=== PATIENT | female | born 1970 | race Caucasian/White ===

== ENCOUNTER 2017-03-21 12:32 | Emergency (ER) | payer MEDICARE ==
[2017-03-21] MEDS ORDERED: Albuterol/Ipratropium 3.0-0.5 MG/3 ML Neb Soln ONE (12:37)
[2017-03-21] MEDS ORDERED: Albuterol/Ipratropium 3.0-0.5 MG/3 ML Neb Soln NEB ONE ×2 (12:38→12:47)
[2017-03-21] MEDS ORDERED: Sodium Chloride 0.9% 1,000 ML IV ONE (12:47)
[2017-03-21] MEDS ORDERED: methylPREDNISolone Sodium Succinate 125 MG/2 ML SDV IVPUSH ONE (12:47)
--- NOTE | 2017-03-21 12:50 | EDM.PDOC ---
ED HISTORY OF PRESENT ILLNESS - General Chief Complaint: Respiratory Problem Stated Complaint: ASTHMA/HARD TO BREATH Time Seen by Provider: 03/21/17 12:48 Source of Information: Reports: Patient History Limitations: Reports: No limitations - History of Present Illness INITIAL COMMENTS - FREE TEXT/NARRATIVE: History of present illness: [47-year-old female comes in complaining of acute exacerbation of her chronic asthma. Patient indicates she did do her nebulizer home but yet she still cannot catch her breath she comes in seeking help to be able to "catch her breath" the] Review of systems: As per history of present illness and below otherwise all systems reviewed and negative. Past medical history: As per history of present illness and as reviewed below otherwise noncontributory. Surgical history: As per history of present illness and as reviewed below otherwise noncontributory. Social history: No reported history of drug or alcohol abuse. Family history: As per history of present illness and as reviewed below otherwise noncontributory. Physical exam: HEENT: Atraumatic, normocephalic, pupils reactive, negative for conjunctival pallor or scleral icterus, mucous membranes moist, throat clear, neck supple, nontender, trachea midline. Lungs: Poor air movement noted throughout specifically in the apices on deep inspiration noted to hear inspiratory and expiratory wheezes not much improved by cough, chest nontender. Heart: S1S2, regular, negative for clicks, rubs, or JVD. Abdomen: Soft, nondistended, nontender. Negative for masses or hepatosplenomegaly. Negative for costovertebral tenderness. Pelvis: Stable nontender. Genitourinary: Deferred. Rectal: Deferred. Extremities: Atraumatic, negative for cords or calf pain. Neurovascular unremarkable. Neuro: Awake, alert, oriented. Cranial nerves II through XII unremarkable. Cerebellum unremarkable. Motor and sensory unremarkable throughout. Exam nonfocal. Diagnostics: [Chest x-ray] Therapeutics: [Duo neb x2, IV fluids, Solu-Medrol IV] Impression: [Asthma exacerbation acute on chronic] Plan: [Followup PCP to address allergic to] Definitive disposition and diagnosis as appropriate pending reevaluation and review of above. - Related Data Allergies/ADRs: Allergies Allergy/AdvReac Type Severity Reaction Status Date / Time aspirin Allergy Other Verified 06/26/16 12:58 ketorolac tromethamine Allergy Rash Verified 06/26/16 12:58 [From Toradol] latex Allergy Rash Verified 06/26/16 12:58 Sulfa (Sulfonamide Allergy Edema Verified 06/26/16 12:58 Antibiotics) trazodone Allergy Hives Verified 06/26/16 12:58 Home Meds: Home Meds Escitalopram Oxalate [Lexapro] 20 mg PO DAILY 02/27/16 [History] Gabapentin [Neurontin] 600 mg PO TID 02/27/16 [History] Levothyroxine [Synthroid] 50 mg PO DAILY 02/27/16 [History] Omeprazole [Prilosec] 40 mg PO DAILY 02/27/16 [History] QUEtiapine [SEROquel] 100 mg PO DAILY 02/27/16 [History] lamoTRIgine [Lamictal] 200 mg PO DAILY 02/27/16 [History] Past Medical History Cardiovascular History: Reports: High cholesterol, Hypertension Respiratory History: Reports: Asthma Musculoskeletal History: Reports: Fibromyalgia Neurological History: Reports: Migraines Other Neuro History: wilbrans disease Psychiatric History: Reports: Addiction, Anxiety, Depression Hematologic History: Reports: Other (see below) Other Hematologic History: von wilabrauns disease - Past Surgical History HEENT Surgical History: Reports: Adenoidectomy, Tonsillectomy Social & Family History - Family History Family Medical History: Noncontributory - Tobacco Use Smoking Status *Q: Current Every Day Smoker Years of Tobacco use: 20 Packs/Tins Daily: 1 Used Tobacco, but Quit: No - Caffeine Use Caffeine Use: Reports: None - Recreational Drug Use Recreational Drug Use: No ED ROS GENERAL - Review of Systems Review Of Systems: See Below (See history of present illness) ED EXAM, GENERAL - Physical Exam Exam: See Below (The history of present illness) Course - Vital Signs Last Recorded V/S: Last Vital Signs Temp 36.3 C 03/21/17 12:39 Pulse 99 03/21/17 12:39 Resp 20 03/21/17 12:39 BP 163/106 H 03/21/17 12:39 Pulse Ox 96 03/21/17 12:49 - Orders/Labs/Meds Orders: Active Orders 24 hr Category Date Time Status RT Aerosol Therapy [RC] ASDIRECTED Care 03/21/17 12:47 Active CXR [Chest 2V] [CR] Stat Exams 03/21/17 12:50 Taken Meds: Medications Discontinued Medications Generic Name Dose Route Start Last Admin Trade Name Cristal PRN Reason Stop Dose Admin Albuterol/Ipratropium 3 ml 03/21/17 12:38 03/21/17 12:44 Duoneb 3.0-0.5 Mg/3 Ml NEB 03/21/17 12:39 3 ml ONETIME ONE Administration Albuterol/Ipratropium Confirm 03/21/17 12:37 03/21/17 12:44 Duoneb 3.0-0.5 Mg/3 Ml Administered 03/21/17 12:38 3 ml Dose Administration 3 ml .ROUTE .STK-MED ONE Albuterol/Ipratropium 3 ml 03/21/17 12:47 03/21/17 12:48 Duoneb 3.0-0.5 Mg/3 Ml NEB 03/21/17 12:48 3 ml ONETIME ONE Administration Sodium Chloride 1,000 mls @ 999 mls/hr 03/21/17 12:47 03/21/17 14:24 Normal Saline IV 03/21/17 13:47 999 mls/hr STAT ONE Administration Methylprednisolone Sodium Succinate 125 mg 03/21/17 12:47 03/21/17 14:20 Solu-Medrol IVPUSH 03/21/17 12:48 125 mg ONETIME ONE Administration Departure - Departure Time of Disposition: 15:01 Disposition: Home, Self-Care 01 Condition: good Clinical Impression: Acute asthma Forms: ED Department Discharge Additional Instructions: The following information is given to patients seen in the emergency department who are being discharged to home. This information is to outline your options for follow-up care. We provide all patients seen in our emergency department with a follow-up referral. The need for follow-up, as well as the timing and circumstances, are variable depending upon the specifics of your emergency department visit. If you don't have a primary care physician on staff, we will provide you with a referral. We always advise you to contact your personal physician following an emergency department visit to inform them of the circumstance of the visit and for follow-up with them and/or the need for any referrals to a consulting specialist. The emergency department will also refer you to a specialist when appropriate. This referral assures that you have the opportunity for follow-up care with a specialist. All of these measure are taken in an effort to provide you with optimal care, which includes your follow-up. Under all circumstances we always encourage you to contact your private physician who remains a resource for coordinating your care. When calling for follow-up care, please make the office aware that this follow-up is from your recent emergency room visit. If for any reason you are refused follow-up, please contact the [facility] Emergency Department at and asked to speak to the emergency department charge nurse. Followup with PCP as discussed in regards to your asthma with frequent exacerbations As discussed would probably benefit you to have allergy testing and/or evaluation after Turned ED as needed discuss - My Orders Last 24 Hours: My Active Orders 03/21/17 12:47 RT Aerosol Therapy [RC] ASDIRECTED 03/21/17 12:50 CXR [Chest 2V] [CR] Stat - Assessment/Plan Last 24 Hours: My Active Orders 03/21/17 12:47 RT Aerosol Therapy [RC] ASDIRECTED 03/21/17 12:50 CXR [Chest 2V] [CR] Stat
--- NOTE | 2017-03-21 15:01 | CR ---
EXAM DATE: 03/21/17 PATIENT'S AGE: 47 Patient: OSCAR HUA Facility: [place], [place] Site . Site : 1970 Study: XRay Chest [id number]/24/2017 1:41:47 PM Ordering Physician: Doctor Jha Final Report: INDICATION: Shortness of Breath. CHEST, PA AND LATERAL Upright PA and lateral radiographs of the chest were performed. Comparison: 02/27/2016. The lungs appear clear and there are no pleural effusions. Heart size and pulmonary vasculature appear normal. Visualized bones show no significant findings. IMPRESSION: No acute intrathoracic abnormality identified. BILL BOONE MD [employer] Dictated by: Germain Boone MD @ 03/21/2017 14:19:12 (Electronic Signature) Report Signed by Proxy and Original Signed Document filed in the Medical Record. [facility]
[2017-03-21 15:20] VITALS: BP 177/104
== END 2017-03-21 15:20 | disposition home or self-care (01) ==
LOC: MW.ED 12:32
DX: J45.909 Unspecified asthma, uncomplicated (principal); E78.00 Pure hypercholesterolemia, unspecified; I10 Essential (primary) hypertension; F41.8 Other specified anxiety disorders; D68.0 Von Willebrand disease; F17.200 Nicotine dependence, unspecified, uncomplicated; Z91.040 Latex allergy status; Z88.8 Allergy status to other drugs, medicaments and biological substances; Z79.899 Other long term (current) drug therapy
CPT/HCPCS: 71020; 94640; 94664; 96361; 96374; 99285; J2930; J7040; 99284

== ENCOUNTER 2017-10-10 00:42 | Observation (INO) | payer MEDICARE ==
[2017-10-10] MEDS ORDERED: Albuterol/Ipratropium 3.0-0.5 MG/3 ML Neb Soln NEB ONE (01:18)
--- NOTE | 2017-10-10 01:18 | EDM.PDOC ---
ED HPI GENERAL MEDICAL PROBLEM - General Chief Complaint: Chest Pain Stated Complaint: AMBULANCE Time Seen by Provider: 10/10/17 01:05 Source of Information: Reports: Patient - History of Present Illness INITIAL COMMENTS - FREE TEXT/NARRATIVE: she presented with onset this evening of central chest pressure. she has asthma and has smoked for thirty years. 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 Chest Pain Score (Numeric/FACES): 8 - Related Data Allergies Allergy/AdvReac Type Severity Reaction Status Date / Time aspirin Allergy Unknown Other Verified 10/10/17 01:29 ketorolac tromethamine Allergy Rash Verified 10/10/17 01:29 [From Toradol] latex Allergy Rash Verified 10/10/17 01:29 NSAIDS (Non-Steroidal Allergy Other Verified 10/10/17 01:29 Anti-Inflamma Sulfa (Sulfonamide Allergy Edema Verified 10/10/17 01:29 Antibiotics) trazodone Allergy Hives Verified 10/10/17 01:29 Nsaid Allergy Other Uncoded 10/10/17 01:29 Home Meds: Home Meds Escitalopram Oxalate [Lexapro] 20 mg PO DAILY 02/27/16 [History] Gabapentin [Neurontin] 1,200 mg PO TID 02/27/16 [History] Levothyroxine [Synthroid] 50 mg PO DAILY 02/27/16 [History] Omeprazole [Prilosec] 40 mg PO DAILY 02/27/16 [History] QUEtiapine [SEROquel] 100 mg PO DAILY PRN 02/27/16 [History] lamoTRIgine [Lamictal] 100 mg PO BID 02/27/16 [History] Amitriptyline [Elavil] 25 mg PO DAILY 10/10/17 [History] cloNIDine [Catapres] 0.1 mg PO DAILY 10/10/17 [History] cloNIDine [Catapres] 0.2 mg PO BEDTIME 10/10/17 [History] Past Medical History Cardiovascular History: Reports: High Cholesterol, Hypertension Respiratory History: Reports: Asthma Musculoskeletal History: Reports: Fibromyalgia Neurological History: Reports: Migraines Other Neuro History: wilbrans disease Psychiatric History: Reports: Addiction, Anxiety, Depression Hematologic History: Reports: Other (See Below) Other Hematologic History: von wilabrauns disease - Past Surgical History HEENT Surgical History: Reports: Adenoidectomy, Tonsillectomy Female Surgical History: Reports: Hysterectomy (for endometriosis) Social & Family History - Family History Family Medical History: Noncontributory - Tobacco Use Smoking Status *Q: Current Every Day Smoker Years of Tobacco use: 20 Packs/Tins Daily: 1 Used Tobacco, but Quit: No - Caffeine Use Caffeine Use: Reports: None - Recreational Drug Use Recreational Drug Use: No ED ROS GENERAL - Review of Systems Review Of Systems: See Below Constitutional: Denies: Fever, Chills ED EXAM, GENERAL - Physical Exam Exam: See Below Free Text/Narrative:: alert normal mentation lungs : coarse diffuse rhonchi heart rrr without m no ankle edema normal mentation no facial droop EKG: NSR Course - Vital Signs Last Recorded V/S: Last Vital Signs Temp 97.2 F 10/10/17 01:00 Pulse 89 10/10/17 01:00 Resp 18 10/10/17 01:00 BP 128/92 H 10/10/17 01:00 Pulse Ox 95 10/10/17 01:00 - Orders/Labs/Meds Orders: Active Orders 24 hr Category Date Time Status EKG 12 Lead [EKG Documentation Completion] [RC] STAT Care 10/10/17 00:58 Active RT Aerosol Therapy [RC] ASDIRECTED Care 10/10/17 01:18 Active Chest 1V Frontal [CR] Stat Exams 10/10/17 01:15 Taken Labs: Laboratory Tests 10/10/17 10/10/17 Range/Units 01:10 01:10 WBC 9.02 (4.0-11.0) K/uL RBC 3.94 L (4.30-5.90) M/uL Hgb 12.9 (12.0-16.0) g/dL Hct 38.0 (36.0-46.0) % MCV 96.4 (80.0-98.0) fL MCH 32.7 H (27.0-32.0) pg MCHC 33.9 (31.0-37.0) g/dL RDW Std Deviation 39.6 (28.0-62.0) fl RDW Coeff of Augusto 12 (11.0-15.0) % Plt Count 300 (150-400) K/uL MPV 8.80 (7.40-12.00) fL Neut % (Auto) 44.4 L (48.0-80.0) % Lymph % (Auto) 43.6 H (16.0-40.0) % [place] % (Auto) 6.8 (0.0-15.0) % Eos % (Auto) 5.0 (0.0-7.0) % Baso % (Auto) 0.2 (0.0-1.5) % Neut # (Auto) 4.0 (1.4-5.7) K/uL Lymph # (Auto) 3.9 H (0.6-2.4) K/uL [place] # (Auto) 0.6 (0.0-0.8) K/uL Eos # (Auto) 0.5 (0.0-0.7) K/uL Baso # (Auto) 0.0 (0.0-0.1) K/uL Sodium 137 (136-146) mmol/L Potassium 3.8 (3.5-5.1) mmol/L Chloride 108 (98-110) mmol/L Carbon Dioxide 20 L (21-31) mmol/L BUN 9 (6.0-23.0) mg/dL Creatinine 0.8 (0.6-1.5) mg/dL Est Cr Clr Drug Dosing 73.46 mL/min Estimated GFR (MDRD) > 60.0 ml/min Glucose 156 H (60-110) mg/dL Calcium 8.9 (8.8-10.8) mg/dL Total Bilirubin 0.3 (0.1-1.5) mg/dL AST 15 (5-40) IU/L ALT 16 (8-54) IU/L Alkaline Phosphatase 71 (40-150) Troponin I < 0.10 (0.0-0.29) NG/ML Total Protein 6.8 (6.0-8.0) g/dL Albumin 3.9 (3.5-5.0) g/dL Globulin 2.9 (2.0-3.5) g/dL Albumin/Globulin Ratio 1.3 (1.3-2.8) Triglycerides 152 (10-190) mg/dL Cholesterol 239 (131-240) mg/dL LDL Cholesterol, Calc 159 (60-180) mg/dL VLDL Cholesterol 30 (5-55) mg/dL HDL Cholesterol 50 (40-80) mg/dL Cholesterol/HDL Ratio 4.8 (3.3-6.0) Meds: Medications Discontinued Medications Generic Name Dose Route Start Last Admin Trade Name Cristal PRN Reason Stop Dose Admin Albuterol/Ipratropium 3 ml 10/10/17 01:18 10/10/17 01:32 Duoneb 3.0-0.5 Mg/3 Ml NEB 10/10/17 01:19 3 ml ONETIME ONE Administration Morphine Sulfate 5 mg 10/10/17 01:59 10/10/17 02:09 Morphine IVPUSH 10/10/17 02:00 5 mg ONETIME ONE Administration Nitroglycerin 1 gm 10/10/17 01:57 10/10/17 02:09 Nitro-Bid 2% TOP 10/10/17 01:58 1 gm ONETIME ONE Administration Departure - Departure Time of Disposition: 02:43 Disposition: Refer to Observation Condition: Fair Clinical Impression: Atypical chest pain Referrals: PCP,None [Primary Care Provider] - Forms: ED Department Discharge - My Orders Last 24 Hours: My Active Orders 10/10/17 00:58 EKG 12 Lead [EKG Documentation Completion] [RC] STAT 10/10/17 01:15 Chest 1V Frontal [CR] Stat 10/10/17 01:18 RT Aerosol Therapy [RC] ASDIRECTED - Assessment/Plan Last 24 Hours: My Active Orders 10/10/17 00:58 EKG 12 Lead [EKG Documentation Completion] [RC] STAT 10/10/17 01:15 Chest 1V Frontal [CR] Stat 10/10/17 01:18 RT Aerosol Therapy [RC] ASDIRECTED
[2017-10-10] MEDS ORDERED: Nitroglycerin 2% Oint 1 GM UD Packet TOP ONE (01:57)
[2017-10-10 01:58] LABS: CHLORIDE,CL 108 mmol/L (98-110); SODIUM,NA 137 mmol/L (136-146)
[2017-10-10] MEDS ORDERED: Morphine 10 MG/ML Syringe IVPUSH ONE (01:59)
[2017-10-10] MEDS ORDERED: Sodium Chloride 0.9% 10 ML Syringe FLUSH PRN (02:44)
[2017-10-10] MEDS ORDERED: Morphine 10 MG/ML Syringe IVPUSH PRN (02:44)
[2017-10-10] MEDS ORDERED: Sodium Chloride 0.9% 2.5 ML Syringe FLUSH PRN (02:44)
[2017-10-10] MEDS ORDERED: Aspirin 81 MG Tab.Chew PO ONE (02:49)
--- NOTE | 2017-10-10 03:08 | PCM.HP ---
H&P History of Present Illness - General Date of Service: 10/10/17 Admit Problem/Dx: Admission Diagnosis/Problem Admission Diagnosis/Problem Chest pain - History of Present Illness Initial Comments - Free Text/Narative: She noted onset of central chest pressure this evening while sitting on the sofa smoking a cigarette. She has a history of asthma but this does not feel like asthma to her. Chest Pain Score (Numeric/FACES): 8 - Related Data Allergies/Adverse Reactions: Allergies Allergy/AdvReac Type Severity Reaction Status Date / Time aspirin Allergy Unknown Other Verified 10/10/17 01:29 ketorolac tromethamine Allergy Rash Verified 10/10/17 01:29 [From Toradol] latex Allergy Rash Verified 10/10/17 01:29 NSAIDS (Non-Steroidal Allergy Other Verified 10/10/17 01:29 Anti-Inflamma Sulfa (Sulfonamide Allergy Edema Verified 10/10/17 01:29 Antibiotics) trazodone Allergy Hives Verified 10/10/17 01:29 Nsaid Allergy Other Uncoded 10/10/17 01:29 Home Medications: Home Meds Escitalopram Oxalate [Lexapro] 20 mg PO DAILY 02/27/16 [History] Gabapentin [Neurontin] 1,200 mg PO TID 02/27/16 [History] Levothyroxine [Synthroid] 50 mg PO DAILY 02/27/16 [History] Omeprazole [Prilosec] 40 mg PO DAILY 02/27/16 [History] QUEtiapine [SEROquel] 100 mg PO DAILY PRN 02/27/16 [History] lamoTRIgine [Lamictal] 100 mg PO BID 02/27/16 [History] Amitriptyline [Elavil] 25 mg PO DAILY 10/10/17 [History] cloNIDine [Catapres] 0.1 mg PO DAILY 10/10/17 [History] cloNIDine [Catapres] 0.2 mg PO BEDTIME 10/10/17 [History] Past Medical History Cardiovascular History: Reports: High Cholesterol, Hypertension Respiratory History: Reports: Asthma Gastrointestinal History: Reports: Gastritis, GERD Musculoskeletal History: Reports: Fibromyalgia Neurological History: Reports: Migraines Other Neuro History: wilbrans disease Psychiatric History: Reports: Addiction, Anxiety, Depression Endocrine/Metabolic History: Reports: Hypothyroidism Hematologic History: Reports: Other (See Below) Other Hematologic History: von wilabrauns disease - Infectious Disease History Infectious Disease History: Reports: Chicken Pox - Past Surgical History HEENT Surgical History: Reports: Adenoidectomy, Tonsillectomy Female Surgical History: Reports: Hysterectomy (for endometriosis) Social & Family History - Family History Family Medical History: Noncontributory - Tobacco Use Smoking Status *Q: Current Every Day Smoker Years of Tobacco use: 20 Packs/Tins Daily: 1 Used Tobacco, but Quit: No - Caffeine Use Caffeine Use: Reports: None Caffeine Use Comment: daily - Recreational Drug Use Recreational Drug Use: No H&P Review of Systems - Review of Systems: Review Of Systems: See Below General: Denies: Fever, Chills Pulmonary: Reports: Other (no significant cough or wheezing noted.) Cardiovascular: Reports: Chest Pain Gastrointestinal: Denies: Abdominal Pain, Black Stool, Bloody Stool, Decreased Appetite, Hematemesis, Hematochezia, Melena, Vomiting Genitourinary: Denies: Dysuria, Frequency, Hematuria Skin: Denies: Cyanosis Psychiatric: Denies: Confusion Exam - Exam Exam: See Below - Vital Signs Vital Signs: Last Vital Signs Temp 97.2 F 10/10/17 01:00 Pulse 89 10/10/17 01:00 Resp 18 10/10/17 01:00 BP 128/92 H 10/10/17 01:00 Pulse Ox 95 10/10/17 01:00 Weight: 97.522 kg - Exam General: Alert, Oriented, Cooperative HEENT: EOMI, Mucosa Moist & [place] Neck: Supple, Trachea Midline Lungs: Other (initial lung exam revealed diffuse coarse rhonchi; repeat exam post duoneb reveals lungs CTA ) Cardiovascular: Regular Rate, Regular Rhythm GI/Abdominal Exam: Soft, Non-Tender, Other (anterior chest wall tenderness; pain reproducible by palpation) (Female) Exam: Deferred Rectal (Female) Exam: Deferred Extremities: No: Pedal Edema Neurological: Cranial Nerves Intact, Normal Speech Neuro Extensive - Motor, Sensory, Reflexes: No: Facial palsy (L), Facial Palsy ( R) - Patient Data Result Diagrams: 10/10/17 01:10 10/10/17 01:10 *Q Meaningful Use (ADM) - VTE *Q VTE Criteria *Q: - Stroke *Q Stroke Criteria *Q: - AMI *Q AMI Criteria *Q: - Problem List (1) Atypical chest pain SNOMED Code(s): 234522073 ICD Code: R07.89 - OTHER CHEST PAIN Status: Acute Current Visit: Yes (2) Bronchospasm SNOMED Code(s): 7904296 ICD Code: J98.01 - ACUTE BRONCHOSPASM Status: Acute Current Visit: Yes (3) Smoker SNOMED Code(s): 33958551 ICD Code: F17.200 - NICOTINE DEPENDENCE, UNSPECIFIED, UNCOMPLICATED Status : Acute Current Visit: Yes Problem List Initiated/Reviewed/Updated: Yes Orders Last 24hrs: Active Orders 24 hr Category Date Time Status Telemetry Monitoring [Cardiac Monitoring] [RC] . Care 10/10/17 02:48 Active DIRECTED LIPID PANEL [CHEM] AM Lab 10/10/17 05:11 Ordered TROPONIN I [CHEM] AM Lab 10/10/17 05:11 Ordered Amitriptyline [Elavil] Med 10/10/17 21:00 Active 25 mg PO BEDTIME Aspirin [Halfprin] Med 10/10/17 09:00 Active 81 mg PO DAILY Escitalopram Oxalate Med 10/10/17 09:00 Active 20 mg PO DAILY Gabapentin Med 10/10/17 06:00 Active 1,200 mg PO TID Levothyroxine [Synthroid] Med 10/10/17 09:00 Active 50,000 mcg PO DAILY Omeprazole [Prilosec] Med 10/10/17 09:00 Active 40 mg PO DAILY cloNIDine [Catapres] Med 10/10/17 09:00 Active 0.1 mg PO DAILY cloNIDine [Catapres] Med 10/10/17 21:00 Active 0.2 mg PO BEDTIME lamoTRIgine [Lamictal] Med 10/10/17 09:00 Active 100 mg PO BID Medication Orders Acetaminophen (Tylenol) 650 mg PO Q4H PRN PRN Reason: Pain (Mild 1-3)/fever Albuterol/Ipratropium (Duoneb 3.0-0.5 Mg/3 Ml) 3 ml NEB Q4HRRT [facility] Amitriptyline HCl (Elavil) 25 mg PO BEDTIME [facility] Aspirin (Halfprin) 81 mg PO DAILY [facility] Clonidine HCl (Catapres) 0.2 mg PO BEDTIME [facility] Clonidine HCl (Catapres) 0.1 mg PO DAILY [facility] Levothyroxine Sodium (Synthroid) 50,000 mcg PO DAILY [facility] Morphine Sulfate (Morphine) 5 mg IVPUSH Q2H PRN PRN Reason: Pain (severe 7-10) Stop: 10/11/17 02:45 Non-Formulary Medication (Escitalopram Oxalate) 20 mg PO DAILY [facility] Non-Formulary Medication (Gabapentin) 1,200 mg PO TID [facility] Non-Formulary Medication (Lamotrigine [Lamictal]) 100 mg PO BID [facility] Non-Formulary Medication (Omeprazole [Prilosec]) 40 mg PO DAILY [facility] Sodium Chloride (Saline Flush) 10 ml FLUSH ASDIRECTED PRN PRN Reason: Keep Vein Open Sodium Chloride (Saline Flush) 2.5 ml FLUSH ASDIRECTED PRN PRN Reason: Keep Vein Open Assessment/Plan Comment:: EKG: NSR ; no evidence of acute ischemia or injury CXR : normal atypical chest pain troponin in am duonebs lipid panel in am probable discharge within a few hours if second troponin is negative. Arvin Richardson MD
[2017-10-10] MEDS: Gabapentin 300 MG Cap PO SCH ×2 (05:21→13:38)
[2017-10-10] MEDS: Acetaminophen 325 MG Tab PO PRN ×2 (05:22→11:18)
[2017-10-10] MEDS: Albuterol/Ipratropium 3.0-0.5 MG/3 ML Neb Soln NEB SCH ×3 (07:00→13:39)
[2017-10-10] MEDS ORDERED: Omeprazole 20 MG Cap.CR PO SCH (07:30)
[2017-10-10] MEDS ORDERED: Levothyroxine 50 MCG Tab PO SCH (08:00)
[2017-10-10] MEDS ORDERED: Aspirin 81 MG Tab.EC PO SCH (09:00)
[2017-10-10] MEDS ORDERED: cloNIDine 0.1 MG Tab PO SCH ×2 (09:00→21:00)
[2017-10-10] MEDS ORDERED: Escitalopram 10 MG Tab PO SCH (09:00)
[2017-10-10] MEDS ORDERED: lamoTRIgine 100 MG Tab PO SCH (09:00)
[2017-10-10] MEDS ORDERED: Pantoprazole 40 MG in Sodium Chloride 0.9% 10 ML IVPUSH SCH (09:00)
[2017-10-10] MEDS ORDERED: Docusate Sodium 100 MG Cap PO SCH (09:00)
[2017-10-10 12:54] VITALS: BP 131/77
--- NOTE | 2017-10-10 13:37 | PCM.DCSUM1 ---
Discharge Summary - Hospital Course Brief History: This 47 year old female with pmh asthma, HTN, tobacco use, and fibromyalgia presented to the ED last evening with concerns of sudden sharp chest pain, almost burning like. She denied worsening SOB. It did slightly radiate to her back. SHe reports not feeling well recently and just having some malaise. In the ED EKG revealed no ST segment changes, CXR negative. She was given Duonebs with some improvement in pain. Initial troponin was negative. She was admitted for atypical chest pain, R/O ACS. - Discharge Data Discharge Date: 10/10/17 Discharge Disposition: Home, Self-Care 01 Condition: Good - Discharge Diagnosis/Problem(s) (1) Atypical chest pain SNOMED Code(s): 635622457 ICD Code: R07.89 - OTHER CHEST PAIN Status: Acute Current Visit: Yes (2) Bronchospasm SNOMED Code(s): 7053812 ICD Code: J98.01 - ACUTE BRONCHOSPASM Status: Acute Current Visit: Yes (3) Smoker SNOMED Code(s): 30420742 ICD Code: F17.200 - NICOTINE DEPENDENCE, UNSPECIFIED, UNCOMPLICATED Status : Chronic Current Visit: Yes (4) Hypertension SNOMED Code(s): 31790788 ICD Code: I10 - ESSENTIAL (PRIMARY) HYPERTENSION Status: Chronic Current Visit: No Qualifiers: Hypertension type: essential hypertension Qualified Code(s): I10 - Essential (primary) hypertension (5) Fibromyalgia SNOMED Code(s): 623636096 ICD Code: M79.7 - FIBROMYALGIA Status: Chronic Current Visit: Yes (6) History of asthma SNOMED Code(s): 213684358 ICD Code: Z87.09 - PERSONAL HISTORY OF OTHER DISEASES OF THE RESPIRATORY SYSTEM Status: Chronic Current Visit: Yes - Patient Instructions Diet: Heart Healthy Diet Activity: As Tolerated, No Strenuous Activities Showering/Bathing: May Shower Notify Provider of: Fever, Increased Pain, Swelling and Redness, Drainage, Nausea and/or Vomiting Other/Special Instructions: Encouraged smoking cessation - Discharge Plan Home Medications: Home Meds Escitalopram Oxalate [Lexapro] 20 mg PO DAILY 02/27/16 [History] Gabapentin [Neurontin] 1,200 mg PO TID 02/27/16 [History] Levothyroxine [Synthroid] 50 mcg PO DAILY 04/01/16 [History] Omeprazole [Prilosec] 40 mg PO DAILY 02/27/16 [History] QUEtiapine [SEROquel] 100 mg PO BEDTIME PRN 02/27/16 [History] lamoTRIgine [Lamictal] 100 mg PO BID 02/27/16 [History] Acetaminophen [Tylenol] 650 mg PO Q4H PRN 10/10/17 [History] Albuterol [Ventolin HFA] 2 inh IH BID 10/10/17 [History] Albuterol [Ventolin HFA] 2 inh IH Q4H PRN 10/10/17 [History] Amitriptyline [Elavil] 25 mg PO BEDTIME 10/10/17 [History] Estradiol [Climara] 0.05 mg TOP [place]@2100 10/10/17 [History] Ibuprofen [Motrin] 800 mg PO Q8H PRN 10/10/17 [History] Metoclopramide HCl [Reglan] 5 mg PO Q6HR PRN 10/10/17 [History] cloNIDine [Catapres] 0.1 mg PO DAILY 10/10/17 [History] cloNIDine [Catapres] 0.2 mg PO BEDTIME 10/10/17 [History] Patient Handouts: Nonspecific Chest Pain, [id number] Referrals: Fransico Blackmon MD [Physician] - 10/18/17 10:45 am (follow up in 1 week, arrange nuclear stress test with [place] cardiology per patient request) - Discharge Summary/Plan Comment DC Time >30 min.: No Discharge Summary/Plan Comment: Discharge Diagnoses: Atypical chest pain Hx asthma Tobacco abuse Fibromyalgia GERD HTN Araceli was admitted and monitored for atypical chest pain rule out ACS. No ST segment changes noted on telemetry, Troponins all negative. She reports pain is better, but is feeling her normal SOB with her asthma. She reports she regularly uses her ventolin and reports the last PFT she had was 3-5 years ago, which she said was good, but the foreign clerk again recommended her to stop smoking. She is ready for discharge today. I will set up a nuclear stress test, non exercise due to respiratory status, she requests this to be done through [facility]. I would also recommend outpatient PFTs to further evaluate respiratory status and need for more management. She is to continue all medications as previously ordered, HIGHLY encouraged to stop smoking and no strenuous activity until after stress test. She is to return to ED or clinic if concerns should arise. Follow up with PCP, in 1 week. - General Info Date of Service: 10/10/17 Admission Dx/Problem (Free Text: Admission Diagnosis/Problem Admission Diagnosis/Problem Chest pain Subjective Update: Reports feeling better this afternoon and is eager to be discharged home. I did recommend outpatient stress test as well as PFTs to further evaluate respiratory status. She denies chest pain now, some continued chest wall tenderness. Reports having a coughing spell a couple days ago. Functional Status: Reports: Pain Controlled, Tolerating Diet, Ambulating, Urinating - Review of Systems General: Reports: No Symptoms. Denies: Fever HEENT: Reports: No Symptoms. Denies: Headaches, Sore Throat, Rhinitis Pulmonary: Reports: Cough, Sputum (in the mornings only. ). Denies: Shortness of Breath, Hemoptysis, Wheezing Cardiovascular: Reports: No Symptoms. Denies: Chest Pain, Palpitations, Edema Gastrointestinal: Reports: No Symptoms. Denies: Abdominal Pain, Nausea, Vomiting Genitourinary: Reports: No Symptoms. Denies: Dysuria, Frequency, Burning Neurological: Reports: No Symptoms. Denies: Confusion Psychiatric: Reports: No Symptoms. Denies: Confusion - Patient Data Vitals - Most Recent: Last Vital Signs Temp 98.1 F 10/10/17 12:00 Pulse 73 10/10/17 12:00 Resp 18 10/10/17 12:00 BP 131/77 10/10/17 12:00 Pulse Ox 94 L 10/10/17 12:00 Weight - Most Recent: 97.522 kg Lab Results - Last 24 hrs: Laboratory Results - last 24 hr 10/10/17 10/10/17 10/10/17 Range/Units 05:15 08:09 11:20 Troponin I < 0.10 < 0.10 (0.0-0.29) NG/ML Triglycerides 147 (10-190) mg/dL Cholesterol 230 (131-240) mg/dL LDL Cholesterol, Calc 156 (60-180) mg/dL VLDL Cholesterol 29 (5-55) mg/dL HDL Cholesterol 45 (40-80) mg/dL Cholesterol/HDL Ratio 5.1 (3.3-6.0) Urine Color YELLOW Urine Appearance CLEAR Urine pH 5.5 (5.0-8.0) Ur Specific [place] 1.010 (1.001-1.035) Urine Protein NEGATIVE (NEGATIVE) mg/dL Urine Glucose (UA) NEGATIVE (NEGATIVE) mg/dL Urine Ketones NEGATIVE (NEGATIVE) mg/dL Urine Occult Blood NEGATIVE (NEGATIVE) Urine Nitrite NEGATIVE (NEGATIVE) Urine Bilirubin NEGATIVE (NEGATIVE) Urine Urobilinogen 0.2 (<2.0) EU/dL Ur Leukocyte Esterase NEGATIVE (NEGATIVE) Urine RBC 0-1 (0-2/HPF) Urine WBC 0-1 (0-5/HPF) Ur Epithelial Cells MODERATE (NONE-FEW) Urine Bacteria RARE (NEGATIVE) Med Orders - Current: Current Medications Acetaminophen (Tylenol) 650 mg PO Q4H PRN PRN Reason: Pain (Mild 1-3)/fever Last Admin: 10/10/17 11:18 Dose: 650 mg Albuterol/Ipratropium (Duoneb 3.0-0.5 Mg/3 Ml) 3 ml NEB Q4HRRT [facility] Last Admin: 10/10/17 12:37 Dose: Not Given Amitriptyline HCl (Elavil) 25 mg PO BEDTIME [facility] Aspirin (Halfprin) 81 mg PO DAILY [facility] Last Admin: 10/10/17 08:55 Dose: 81 mg Clonidine HCl (Catapres) 0.2 mg PO BEDTIME [facility] Clonidine HCl (Catapres) 0.1 mg PO DAILY [facility] Last Admin: 10/10/17 09:13 Dose: Not Given Docusate Sodium (Colace) 100 mg PO BID [facility] Last Admin: 10/10/17 08:54 Dose: 100 mg Escitalopram Oxalate (Lexapro) 20 mg PO DAILY [facility] Last Admin: 10/10/17 08:55 Dose: 20 mg Gabapentin (Neurontin) 1,200 mg PO TID [facility] Last Admin: 10/10/17 05:21 Dose: 1,200 mg Pantoprazole Sodium 40 mg/ (Sodium Chloride) 10 mls @ 300 mls/hr IVPUSH DAILY [facility] Last Admin: 10/10/17 08:56 Dose: 300 mls/hr Lamotrigine (Lamotrigine) 100 mg PO BID [facility] Last Admin: 10/10/17 08:54 Dose: 100 mg Levothyroxine Sodium (Synthroid) 50 mcg PO ACBREAKFAST [facility] Last Admin: 10/10/17 08:55 Dose: 50 mcg Morphine Sulfate (Morphine) 5 mg IVPUSH Q2H PRN PRN Reason: Pain (severe 7-10) Last Admin: 10/10/17 03:42 Dose: 5 mg Omeprazole (Omeprazole) 40 mg PO DAILY@0730 [facility] Last Admin: 10/10/17 06:57 Dose: 40 mg Sodium Chloride (Saline Flush) 10 ml FLUSH ASDIRECTED PRN PRN Reason: Keep Vein Open Sodium Chloride (Saline Flush) 2.5 ml FLUSH ASDIRECTED PRN PRN Reason: Keep Vein Open Discontinued Medications Albuterol/Ipratropium (Duoneb 3.0-0.5 Mg/3 Ml) 3 ml NEB ONETIME ONE Stop: 10/10/17 01:19 Last Admin: 10/10/17 01:32 Dose: 3 ml Aspirin (Aspirin) 324 mg PO ONETIME ONE Stop: 10/10/17 02:50 Last Admin: 10/10/17 02:56 Dose: 324 mg Morphine Sulfate (Morphine) 5 mg IVPUSH ONETIME ONE Stop: 10/10/17 02:00 Last Admin: 10/10/17 02:09 Dose: 5 mg Nitroglycerin (Nitro-Bid 2%) 1 gm TOP ONETIME ONE Stop: 10/10/17 01:58 Last Admin: 10/10/17 02:09 Dose: 1 gm - Exam General: Reports: Alert, Oriented, Cooperative Lungs: Reports: Clear to Auscultation, Normal Respiratory Effort, Other ( anterior chest wall tenderness) Cardiovascular: Reports: Regular Rate, Regular Rhythm, No Murmurs GI/Abdominal Exam: Normal Bowel Sounds, Soft, Non-Tender, No Organomegaly, No Distention, No Abnormal Bruit, No Mass, Pelvis Stable Extremities: Normal Inspection, Normal Range of Motion, Non-Tender, No Pedal Edema, Normal Capillary Refill Neurological: Reports: No New Focal Deficit Psy/Mental Status: Reports: Alert, Normal Affect, Normal Mood *Q Meaningful Use (DIS) - VTE *Q VTE Criteria *Q: - Stroke *Q Stroke Criteria *Q: - AMI *Q AMI Criteria *Q:
--- NOTE | 2017-10-10 16:32 | CR ---
EXAM DATE: 10/10/17 PATIENT'S AGE: 47 Patient: OSCAR HUA Facility: [place], [place] Site . Site : 1970 Study: XRay Chest [id number]/13/[id number] 1:37:26 AM Ordering Physician: Dylan Sheridan Final Report: INDICATION: Chest pain TECHNIQUE: Chest radiograph 4 views COMPARISON: 03/21/17 FINDINGS: Cardiovascular and mediastinum: The cardiac silhouette is normal in appearance and size. Mediastinum is within normal limits. Lungs and pleural spaces: Both lungs are unremarkable in appearance. No sign of pleural effusion. No pneumothorax is seen. Bones and soft tissues: No significant findings. IMPRESSION: 1. No acute cardiopulmonary disease seen. Dictated by: Jack Menendez MD @ 10/10/2017 01:40:25 (Electronic Signature) Report Signed by Proxy. [facility] CENTERArlyn
[2017-10-10] MEDS ORDERED: Amitriptyline 25 MG Tab PO SCH (21:00)
== END 2017-10-10 15:20 | disposition home or self-care (01) ==
LOC: MW.ED 00:42 → MW.MS 02:44
PROVIDERS: ADMIT Family Medicine; ATTEND Family Medicine
DX: R07.89 Other chest pain (principal); J98.01 Acute bronchospasm; I10 Essential (primary) hypertension; M79.7 Fibromyalgia; E78.00 Pure hypercholesterolemia, unspecified; K21.9 Gastro-esophageal reflux disease without esophagitis; F41.9 Anxiety disorder, unspecified; F32.9 Major depressive disorder, single episode, unspecified; E03.9 Hypothyroidism, unspecified; Z79.899 Other long term (current) drug therapy; Z87.09 Personal history of other diseases of the respiratory system; Z88.2 Allergy status to sulfonamides; Z88.8 Allergy status to other drugs, medicaments and biological substances; Z91.040 Latex allergy status; Z90.710 Acquired absence of both cervix and uterus; F17.210 Nicotine dependence, cigarettes, uncomplicated
CPT/HCPCS: 36415; 71010; 80053; 80061; 81001; 84484; 85025; 93005; 96374; 96375; 96376; 99285; A9270; C9113; G0378; J2270; 99282

== ENCOUNTER 2018-08-21 19:36 | Emergency (ER) | payer MEDICARE ==
--- NOTE | 2018-08-21 19:51 | EDM.PDOC ---
ED HPI GENERAL MEDICAL PROBLEM - General Chief Complaint: Chest Pain Stated Complaint: PT HAS CHEST PAINS Time Seen by Provider: 08/21/18 19:40 - History of Present Illness INITIAL COMMENTS - FREE TEXT/NARRATIVE: HISTORY AND PHYSICAL: History of present illness: Patient is a 48-year-old white female who has an extensive family history for coronary artery disease has been worked up and does use nitroglycerin when necessary she is unable to qualify the specifics of her nuclear medicine cardiac scan which was done relatively recently but has seen cardiology and presents today with chest pain that is been described as a tightness with equivocal associated shortness of breath she denies diaphoresis palpitations nausea or vomiting her EKG on arrival here as no acute changes cardiac workup was initiated and I discussed with patient the history and her presenting symptoms and without reservation patient is requesting transfer to [facility]. Review of systems: As per history of present illness and below otherwise all systems reviewed and negative. Past medical history: As per history of present illness and as reviewed below otherwise noncontributory. Surgical history: As per history of present illness and as reviewed below otherwise noncontributory. Social history: No reported history of drug or alcohol abuse. Family history: As per history of present illness and as reviewed below otherwise noncontributory. Physical exam: HEENT: Atraumatic, normocephalic, pupils reactive, negative for conjunctival pallor or scleral icterus, mucous membranes moist, throat clear, neck supple, nontender, trachea midline. Lungs: Clear to auscultation, breath sounds equal bilaterally, chest nontender. Heart: S1S2, regular, negative for clicks, rubs, or JVD. Abdomen: Soft, nondistended, nontender. Negative for masses or hepatosplenomegaly. Negative for costovertebral tenderness. Pelvis: Stable nontender. Genitourinary: Deferred. Rectal: Deferred. Extremities: Atraumatic, negative for cords or calf pain. Neurovascular unremarkable. Neuro: Awake, alert, oriented. Cranial nerves II through XII unremarkable. Cerebellum unremarkable. Motor and sensory unremarkable throughout. Exam nonfocal. Diagnostics: CBC CMP troponin PT/INR chest x-ray EKG Therapeutics: Patient states allergies to aspirin and declines she does agree to nitroglycerin paste 1 inch IV O2 and monitor Impression: #1 chest pain Definitive disposition and diagnosis as appropriate pending reevaluation and review of above. chest Pain Score (Numeric/FACES): 8 - Related Data Allergies Allergy/AdvReac Type Severity Reaction Status Date / Time aspirin Allergy Unknown Other Verified 08/21/18 19:45 ketorolac tromethamine Allergy Rash Verified 08/21/18 19:45 [From Toradol] latex Allergy Rash Verified 08/21/18 19:45 NSAIDS (Non-Steroidal Allergy Other Verified 08/21/18 19:45 Anti-Inflamma Sulfa (Sulfonamide Allergy Edema Verified 08/21/18 19:45 Antibiotics) trazodone Allergy Hives Verified 08/21/18 19:45 Nsaid Allergy Other Uncoded 08/21/18 19:45 Home Meds: Home Meds Escitalopram Oxalate [Lexapro] 20 mg PO DAILY 02/27/16 [History] Gabapentin [Neurontin] 1,200 mg PO TID 02/27/16 [History] Levothyroxine [Synthroid] 50 mcg PO DAILY 02/27/16 [History] Omeprazole [Prilosec] 40 mg PO DAILY 02/27/16 [History] QUEtiapine [SEROquel] 100 mg PO BEDTIME PRN 02/27/16 [History] lamoTRIgine [Lamictal] 100 mg PO BID 02/27/16 [History] Acetaminophen [Tylenol] 650 mg PO Q4H PRN 10/10/17 [History] Albuterol [Ventolin HFA] 2 inh IH BID 10/10/17 [History] Albuterol [Ventolin HFA] 2 inh IH Q4H PRN 10/10/17 [History] Amitriptyline [Elavil] 25 mg PO BEDTIME 10/10/17 [History] Estradiol [Climara] 0.05 mg [place]@2100 10/10/17 [History] Ibuprofen [Motrin] 800 mg PO Q8H PRN 10/10/17 [History] Metoclopramide HCl [Reglan] 5 mg PO Q6HR PRN 10/10/17 [History] cloNIDine [Catapres] 0.1 mg PO DAILY 10/10/17 [History] cloNIDine [Catapres] 0.2 mg PO BEDTIME 10/10/17 [History] Past Medical History HEENT History: Reports: Impaired Vision Cardiovascular History: Reports: High Cholesterol, Hypertension Respiratory History: Reports: Asthma Gastrointestinal History: Reports: Gastritis, GERD Other Gastrointestinal History: hx ileus Genitourinary History: Reports: UTI, Recurrent Musculoskeletal History: Reports: Fibromyalgia Neurological History: Reports: Migraines Other Neuro History: wilbrans disease Psychiatric History: Reports: Addiction, Anxiety, Depression Endocrine/Metabolic History: Reports: Hypothyroidism Other Endocrine/Metabolic History: hypoglycemia Hematologic History: Reports: Other (See Below) Other Hematologic History: von wilabrauns disease Dermatologic History: Reports: Eczema - Infectious Disease History Infectious Disease History: Reports: Chicken Pox - Past Surgical History HEENT Surgical History: Reports: Adenoidectomy, Tonsillectomy Female Surgical History: Reports: Hysterectomy (for endometriosis) Social & Family History - Family History Family Medical History: Noncontributory - Caffeine Use Caffeine Use: Reports: None Caffeine Use Comment: daily ED ROS GENERAL - Review of Systems Review Of Systems: ROS reveals no pertinent complaints other than HPI. ED EXAM, GENERAL - Physical Exam Exam: See Below (See dictation) Course - Vital Signs Last Recorded V/S: Last Vital Signs Temp 36.2 C 08/21/18 19:40 Pulse 86 08/21/18 19:40 Resp 20 08/21/18 19:40 BP 149/108 H 08/21/18 19:40 Pulse Ox 99 08/21/18 19:40 - Orders/Labs/Meds Orders: Active Orders 24 hr Category Date Time Status Chest 1V Frontal [CR] Stat Exams 08/21/18 20:13 Ordered Labs: Laboratory Tests 08/21/18 08/21/18 08/21/18 Range/Units 20:32 20:32 20:32 WBC 7.45 (4.0-11.0) K/uL RBC 4.32 (4.30-5.90) M/uL Hgb 14.3 (12.0-16.0) g/dL Hct 41.0 (36.0-46.0) % MCV 94.9 (80.0-98.0) fL MCH 33.1 H (27.0-32.0) pg MCHC 34.9 (31.0-37.0) g/dL RDW Std Deviation 43.5 (28.0-62.0) fl RDW Coeff of Augusto 13 (11.0-15.0) % Plt Count 321 (150-400) K/uL MPV 9.00 (7.40-12.00) fL Neut % (Auto) 35.6 L (48.0-80.0) % Lymph % (Auto) 50.7 H (16.0-40.0) % [place] % (Auto) 8.7 (0.0-15.0) % Eos % (Auto) 4.6 (0.0-7.0) % Baso % (Auto) 0.4 (0.0-1.5) % Neut # (Auto) 2.7 (1.4-5.7) K/uL Lymph # (Auto) 3.8 H (0.6-2.4) K/uL [place] # (Auto) 0.7 (0.0-0.8) K/uL Eos # (Auto) 0.3 (0.0-0.7) K/uL Baso # (Auto) 0.0 (0.0-0.1) K/uL Nucleated RBC % 0.0 /100WBC Nucleated RBCs # 0 K/uL INR 0.94 Sodium 139 (136-145) mmol/L Potassium 3.8 (3.5-5.1) mmol/L Chloride 102 (98-107) mmol/L Carbon Dioxide 28.7 (21.0-32.0) mmol/L BUN 8 (7.0-18.0) mg/dL Creatinine 1.0 (0.6-1.0) mg/dL Est Cr Clr Drug Dosing 58.12 mL/min Estimated GFR (MDRD) 58.7 ml/min Glucose 80 (74-106) mg/dL Calcium 9.6 (8.5-10.1) mg/dL Total Bilirubin 0.3 (0.2-1.0) mg/dL AST 19 (15-37) IU/L ALT 26 (14-63) IU/L Alkaline Phosphatase 75 (46-116) U/L Troponin I < 0.050 (0.000-0.056) ng/mL Total Protein 7.4 (6.4-8.2) g/dL Albumin 3.6 (3.4-5.0) g/dL Globulin 3.8 H (2.0-3.5) g/dL Albumin/Globulin Ratio 1.0 L (1.3-2.8) Meds: Medications Discontinued Medications Generic Name Dose Route Start Last Admin Trade Name Cristal PRN Reason Stop Dose Admin Nitroglycerin 1 gm 08/21/18 19:58 08/21/18 20:04 Nitro-Bid 2% TOP 08/21/18 19:59 1 gm ONETIME ONE Administration Departure - Departure Time of Disposition: 21:09 Disposition: DC/Tfer to Acute Hospital 02 Condition: Good Clinical Impression: Chest pain - Discharge Information Forms: ED Department Discharge - My Orders Last 24 Hours: My Active Orders 08/21/18 20:13 Chest 1V Frontal [CR] Stat - Assessment/Plan Last 24 Hours: My Active Orders 08/21/18 20:13 Chest 1V Frontal [CR] Stat
[2018-08-21] MEDS ORDERED: Nitroglycerin 2% Oint 1 GM UD Packet TOP ONE (19:58)
[2018-08-21 20:08] VITALS: BP 149/108
[2018-08-21 21:06] LABS: CHLORIDE,CL 102 mmol/L (98-107); SODIUM,NA 139 mmol/L (136-145)
--- NOTE | 2018-08-22 10:57 | CR ---
EXAM DATE: 08/21/18 PATIENT'S AGE: 48 Patient: OSCAR HUA Facility: [place], [place] Site . Site : 1970 Study: XRay Chest [id number]/24/[id number] 8:54:34 PM Ordering Physician: Jimmy David Final Report: Pain shortness of breath TECHNIQUE: Findings: Normal cardiac mediastinal silhouette. No acute airspace or interstitial process. No effusion no pneumothorax. Impression: No acute pulmonary process. Dictated by Della Marcus MD @ Aug 21 2018 9:35PM (Electronic Signature) Report Signed by Proxy. DAYAN
== END 2018-08-21 22:00 ==
LOC: MW.ED 19:36
DX: R07.9 Chest pain, unspecified (principal); E78.00 Pure hypercholesterolemia, unspecified; I10 Essential (primary) hypertension; J45.909 Unspecified asthma, uncomplicated; K21.9 Gastro-esophageal reflux disease without esophagitis; E03.9 Hypothyroidism, unspecified; F17.210 Nicotine dependence, cigarettes, uncomplicated; F41.9 Anxiety disorder, unspecified; F32.9 Major depressive disorder, single episode, unspecified; Z88.6 Allergy status to analgesic agent; Z88.5 Allergy status to narcotic agent; Z88.2 Allergy status to sulfonamides; Z79.899 Other long term (current) drug therapy
CPT/HCPCS: 36415; 71045; 80053; 84484; 85025; 85610; 93005; 99285; A9270; 99284

== ENCOUNTER 2019-04-13 17:04 | Emergency (ER) | payer MEDICARE ==
[2019-04-13] MEDS ORDERED: Sodium Chloride 0.9% 1,000 ML IV ONE (17:27)
[2019-04-13] MEDS ORDERED: Ondansetron 4 MG/2 ML SDV IVPUSH ONE (17:27)
[2019-04-13] MEDS ORDERED: Sodium Chloride 0.9% 2.5 ML Syringe FLUSH PRN (17:27)
[2019-04-13] MEDS ORDERED: Sodium Chloride 0.9% 10 ML Syringe FLUSH PRN (17:27)
--- NOTE | 2019-04-13 17:29 | EDM.PDOC ---
ED HPI GENERAL MEDICAL PROBLEM - General Chief Complaint: Abdominal Pain Stated Complaint: UPPER STOMACH PAIN Time Seen by Provider: 04/13/19 17:24 - History of Present Illness INITIAL COMMENTS - FREE TEXT/NARRATIVE: HISTORY AND PHYSICAL: History of present illness: Patient 49-year-old female with history of prior episode of ileus versus partial small bowel obstruction was abdominal surgeries included total abdominal hysterectomy and endometrial ablation who has a mild form of von Willebrand's disease. Who presents with chief complaint abdominal pain and diarrhea the last episode diarrheas 2 days prior she had poor oral intake since. There's been no fever no chills no trauma or other concern Review of systems: As per history of present illness and below otherwise all systems reviewed and negative. Past medical history: As per history of present illness and as reviewed below otherwise noncontributory. Surgical history: As per history of present illness and as reviewed below otherwise noncontributory. Social history: No reported history of drug or alcohol abuse. Family history: As per history of present illness and as reviewed below otherwise noncontributory. Physical exam: HEENT: Atraumatic, normocephalic, pupils reactive, negative for conjunctival pallor or scleral icterus, mucous membranes dry, throat clear, neck supple, nontender, trachea midline. Lungs: Clear to auscultation, breath sounds equal bilaterally, chest nontender. Heart: S1S2, regular, negative for clicks, rubs, or JVD. Abdomen: Soft, nondistended, no localized tenderness. Negative for masses or hepatosplenomegaly. Negative for costovertebral tenderness. Pelvis: Stable nontender. Genitourinary: Deferred. Rectal: Deferred. Extremities: Atraumatic, negative for cords or calf pain. Neurovascular unremarkable. Neuro: Awake, alert, oriented. Cranial nerves II through XII unremarkable. Cerebellum unremarkable. Motor and sensory unremarkable throughout. Exam nonfocal. Diagnostics: CBC CMP and lipase UA CT abdomen and pelvis chest x-ray Therapeutics: Saline 1 L bolus Zofran 4 mg IV Impression: #1 abdominal pain Definitive disposition and diagnosis as appropriate pending reevaluation and review of above. - Related Data Allergies Allergy/AdvReac Type Severity Reaction Status Date / Time aspirin Allergy Unknown Other Verified 04/13/19 17:29 ketorolac tromethamine Allergy Rash Verified 04/13/19 17:29 [From Toradol] latex Allergy Rash Verified 04/13/19 17:29 NSAIDS (Non-Steroidal Allergy Other Verified 04/13/19 17:29 Anti-Inflamma Sulfa (Sulfonamide Allergy Edema Verified 04/13/19 17:29 Antibiotics) trazodone Allergy Hives Verified 04/13/19 17:29 Nsaid Allergy Other Uncoded 04/13/19 17:29 Home Meds: Home Meds Escitalopram Oxalate [Lexapro] 20 mg PO DAILY 02/27/16 [History] Gabapentin [Neurontin] 1,200 mg PO TID 02/27/16 [History] Levothyroxine [Synthroid] 50 mcg PO DAILY 02/27/16 [History] Omeprazole [Prilosec] 40 mg PO DAILY 02/27/16 [History] QUEtiapine [SEROquel] 100 mg PO BEDTIME PRN 02/27/16 [History] lamoTRIgine [Lamictal] 100 mg PO BID 02/27/16 [History] Acetaminophen [Tylenol] 650 mg PO Q4H PRN 10/10/17 [History] Albuterol [Ventolin HFA] 2 inh IH BID 10/10/17 [History] Albuterol [Ventolin HFA] 2 inh IH Q4H PRN 10/10/17 [History] Amitriptyline [Elavil] 25 mg PO BEDTIME 10/10/17 [History] Estradiol [Climara] 0.05 mg TOP [place]@2100 10/10/17 [History] Ibuprofen [Motrin] 800 mg PO Q8H PRN 10/10/17 [History] Metoclopramide HCl [Reglan] 5 mg PO Q6HR PRN 10/10/17 [History] cloNIDine [Catapres] 0.1 mg PO DAILY 10/10/17 [History] cloNIDine [Catapres] 0.2 mg PO BEDTIME 10/10/17 [History] Past Medical History HEENT History: Reports: Impaired Vision Cardiovascular History: Reports: High Cholesterol, Hypertension Respiratory History: Reports: Asthma Gastrointestinal History: Reports: Gastritis, GERD Other Gastrointestinal History: hx ileus Genitourinary History: Reports: UTI, Recurrent Musculoskeletal History: Reports: Fibromyalgia Neurological History: Reports: Migraines Other Neuro History: wilbrans disease Psychiatric History: Reports: Addiction, Anxiety, Depression Endocrine/Metabolic History: Reports: Hypothyroidism Other Endocrine/Metabolic History: hypoglycemia Hematologic History: Reports: Other (See Below) Other Hematologic History: von wilabrauns disease Dermatologic History: Reports: Eczema - Infectious Disease History Infectious Disease History: Reports: Chicken Pox - Past Surgical History HEENT Surgical History: Reports: Adenoidectomy, Tonsillectomy Female Surgical History: Reports: Hysterectomy (for endometriosis) Social & Family History - Family History Family Medical History: Noncontributory - Caffeine Use Caffeine Use: Reports: None Caffeine Use Comment: daily ED ROS GENERAL - Review of Systems Review Of Systems: ROS reveals no pertinent complaints other than HPI. ED EXAM, GENERAL - Physical Exam Exam: See Below (See dictation) Course - Vital Signs Last Recorded V/S: Last Vital Signs Temp 36.7 C 04/13/19 17:29 Pulse 98 04/13/19 17:29 Resp 16 04/13/19 17:29 BP 138/107 H 04/13/19 17:29 Pulse Ox 97 04/13/19 17:29 - Orders/Labs/Meds Orders: Active Orders 24 hr Category Date Time Status UA RFX KEN AND CULT IF INDIC [URIN] Stat Lab 04/13/19 17:27 Ordered Sodium Chloride 0.9% [Saline Flush] Med 04/13/19 17:27 Active 10 ml FLUSH ASDIRECTED PRN Sodium Chloride 0.9% [Saline Flush] Med 04/13/19 17:27 Active 2.5 ml FLUSH ASDIRECTED PRN Saline Lock Insert [OM.PC] Stat Oth 04/13/19 17:26 Ordered Medication Orders Sodium Chloride (Saline Flush) 10 ml FLUSH ASDIRECTED PRN PRN Reason: Keep Vein Open Last Admin: 04/13/19 18:00 Dose: 10 ml Sodium Chloride (Saline Flush) 2.5 ml FLUSH ASDIRECTED PRN PRN Reason: Keep Vein Open Last Admin: 04/13/19 18:00 Dose: 2.5 ml Labs: Laboratory Tests 04/13/19 04/13/19 04/13/19 Range/Units 17:49 17:49 17:49 WBC 8.88 (4.0-11.0) K/uL RBC 4.30 (4.30-5.90) M/uL Hgb 14.3 (12.0-16.0) g/dL Hct 41.1 (36.0-46.0) % MCV 95.6 (80.0-98.0) fL MCH 33.3 H (27.0-32.0) pg MCHC 34.8 (31.0-37.0) g/dL RDW Std Deviation 42.4 (28.0-62.0) fl RDW Coeff of Augusto 12 (11.0-15.0) % Plt Count 334 (150-400) K/uL MPV 9.00 (7.40-12.00) fL Neut % (Auto) 46.0 L (48.0-80.0) % Lymph % (Auto) 42.5 H (16.0-40.0) % [place] % (Auto) 6.3 (0.0-15.0) % Eos % (Auto) 4.7 (0.0-7.0) % Baso % (Auto) 0.5 (0.0-1.5) % Neut # (Auto) 4.1 (1.4-5.7) K/uL Lymph # (Auto) 3.8 H (0.6-2.4) K/uL [place] # (Auto) 0.6 (0.0-0.8) K/uL Eos # (Auto) 0.4 (0.0-0.7) K/uL Baso # (Auto) 0.0 (0.0-0.1) K/uL Nucleated RBC % 0.0 /100WBC Nucleated RBCs # 0 K/uL INR 0.96 Sodium 136 (136-145) mmol/L Potassium 3.9 (3.5-5.1) mmol/L Chloride 98 (98-107) mmol/L Carbon Dioxide 23.7 (21.0-32.0) mmol/L BUN 10 (7.0-18.0) mg/dL Creatinine 1.1 H (0.6-1.0) mg/dL Est Cr Clr Drug Dosing 52.25 mL/min Estimated GFR (MDRD) 52.4 ml/min Glucose 90 (74-106) mg/dL Calcium 9.4 (8.5-10.1) mg/dL Total Bilirubin 0.4 (0.2-1.0) mg/dL AST 20 (15-37) IU/L ALT 31 (14-63) IU/L Alkaline Phosphatase 78 (46-116) U/L Total Protein 7.7 (6.4-8.2) g/dL Albumin 3.9 (3.4-5.0) g/dL Globulin 3.8 (2.6-4.0) g/dL Albumin/Globulin Ratio 1.0 (0.9-1.6) Lipase 73 (73-393) U/L Meds: Medications Generic Name Dose Route Start Last Admin Trade Name Freq PRN Reason Stop Dose Admin Sodium Chloride 10 ml 04/13/19 17:27 04/13/19 18:00 Saline Flush FLUSH 10 ml ASDIRECTED PRN Administration Keep Vein Open Sodium Chloride 2.5 ml 04/13/19 17:27 04/13/19 18:00 Saline Flush FLUSH 2.5 ml ASDIRECTED PRN Administration Keep Vein Open Discontinued Medications Generic Name Dose Route Start Last Admin Trade Name Freq PRN Reason Stop Dose Admin Sodium Chloride 1,000 mls @ 999 mls/hr 04/13/19 17:27 04/13/19 17:59 Normal Saline IV 04/13/19 18:27 999 mls/hr STAT ONE Administration Ondansetron HCl 4 mg 04/13/19 17:27 04/13/19 18:00 Zofran IVPUSH 04/13/19 17:28 4 mg ONETIME ONE Administration Departure - Departure Time of Disposition: 19:30 Disposition: Home, Self-Care 01 Condition: Good Clinical Impression: Abdominal pain, History of fibromyalgia, Encounter for medical screening examination - Discharge Information Referrals: PCP,Unknown [Primary Care Provider] - Forms: ED Department Discharge Additional Instructions: The following information is given to patients seen in the emergency department who are being discharged to home. This information is to outline your options for follow-up care. We provide all patients seen in our emergency department with a follow-up referral. The need for follow-up, as well as the timing and circumstances, are variable depending upon the specifics of your emergency department visit. If you don't have a primary care physician on staff, we will provide you with a referral. We always advise you to contact your personal physician following an emergency department visit to inform them of the circumstance of the visit and for follow-up with them and/or the need for any referrals to a consulting specialist. The emergency department will also refer you to a specialist when appropriate. This referral assures that you have the opportunity for followup care with a specialist. All of these measure are taken in an effort to provide you with optimal care, which includes your followup. Under all circumstances we always encourage you to contact your private physician who remains a resource for coordinating your care. When calling for followup care, please make the office aware that this follow-up is from your recent emergency room visit. If for any reason you are refused follow-up, please contact the [facility] emergency department at and asked to speak to the emergency department charge nurse. Continue current medications push fluids follow primary medical doctor return as needed as discussed - My Orders Last 24 Hours: My Active Orders 04/13/19 17:26 Saline Lock Insert [OM.PC] Stat 04/13/19 17:27 UA RFX KEN AND CULT IF INDIC [URIN] Stat Sodium Chloride 0.9% [Saline Flush] 10 ml FLUSH ASDIRECTED PRN Sodium Chloride 0.9% [Saline Flush] 2.5 ml FLUSH ASDIRECTED PRN - Assessment/Plan Last 24 Hours: My Active Orders 04/13/19 17:26 Saline Lock Insert [OM.PC] Stat 04/13/19 17:27 UA RFX KEN AND CULT IF INDIC [URIN] Stat Sodium Chloride 0.9% [Saline Flush] 10 ml FLUSH ASDIRECTED PRN Sodium Chloride 0.9% [Saline Flush] 2.5 ml FLUSH ASDIRECTED PRN
--- NOTE | 2019-04-13 18:48 | CR ---
INDICATION: Right upper quadrant pain radiating to the back for the past 3 days. COMPARISON: 08/21/2018 FINDINGS: An erect single view of the chest was obtained at 18 14 hours. The lungs remain clear. No focal or diffuse infiltrates are present. The heart remains normal in size. The mediastinum is normal in appearance. The osseous structures are normal in appearance for the patient`s age. IMPRESSION: Normal chest single view. Dictated by Josh Bhat MD @ Apr 13 2019 6:44PM Signed by Dr. Josh Bhat @ Apr 13 2019 6:45PM
--- NOTE | 2019-04-13 18:50 | CT ---
INDICATION: Right upper quadrant pain radiating into the back for the past 3 days. COMPARISON: None available TECHNIQUE: CT examination of the abdomen and pelvis was performed without contrast enhancement using 3 mm thick axial sections from the lung bases through the pubic symphysis. Oral contrast was not administered. Please note that all CT scans at this facility use dose modulation, iterative reconstruction, and/or weight-based dosing when appropriate to reduce radiation dose to as low as reasonably achievable. FINDINGS: In the abdomen, the unenhanced liver, spleen, pancreas, and adrenals are normal in appearance. The unenhanced kidneys are normal in appearance. The gallbladder is normal in appearance. The abdominal aorta is normal in caliber with no sign of dilatation. There is no sign of retroperitoneal mass or adenopathy. The stomach, loops of small bowel, and colon in the abdomen are normal in appearance. In the pelvis, the appendix is normal in appearance with no sign of inflammatory process. The loops of small bowel and colon in the pelvis are normal in appearance. The uterus is absent and the adnexal regions are normal in appearance. The urinary bladder is normal in appearance. There is no sign of pelvic or inguinal mass or adenopathy. The lung bases are clear. There is moderate L3-4 and L4-5 disc degenerative disease. There is mild L5-S1 disc degenerative disease with minimal posterior subluxation of L5 on S1. IMPRESSION: Nothing seen to explain the patient`s right upper quadrant pain. Normal appearance of the gallbladder, liver, and right urinary system. Normal appearance of the loops of bowel in the right upper quadrant. Normal CT of the abdomen with contrast. CT of the pelvis shows changes of hysterectomy. Please note that all CT scans at this facility use dose modulation, iterative reconstruction, and/or weight-based dosing when appropriate to reduce radiation dose to as low as reasonably achievable. Dictated by Josh Bhat MD @ Apr 13 2019 6:46PM Signed by Dr. Josh Bhat @ Apr 13 2019 6:49PM
[2019-04-13 19:50] VITALS: BP 127/99
== END 2019-04-13 19:50 | disposition home or self-care (01) ==
LOC: MW.ED 17:04
DX: R10.9 Unspecified abdominal pain (principal); I10 Essential (primary) hypertension; E78.00 Pure hypercholesterolemia, unspecified; J45.909 Unspecified asthma, uncomplicated; K21.9 Gastro-esophageal reflux disease without esophagitis; F41.9 Anxiety disorder, unspecified; F32.9 Major depressive disorder, single episode, unspecified; E03.9 Hypothyroidism, unspecified; Z88.6 Allergy status to analgesic agent; Z91.040 Latex allergy status; Z88.2 Allergy status to sulfonamides; Z88.8 Allergy status to other drugs, medicaments and biological substances; Z79.899 Other long term (current) drug therapy
CPT/HCPCS: 36415; 71045; 74176; 80053; 83690; 85025; 85610; 96361; 96374; 99284; J2405; J7040; 99283

== ENCOUNTER 2020-02-11 07:52 | Observation (INO) | payer MEDICARE, OTHER ==
[2020-02-11] MEDS ORDERED: methylPREDNISolone Sodium Succinate 125 MG/2 ML SDV IVPUSH ONE (08:12)
[2020-02-11] MEDS ORDERED: Albuterol/Ipratropium 3.0-0.5 MG/3 ML Neb Soln NEB ONE (08:13)
[2020-02-11] MEDS ORDERED: Magnesium Sulfate (4.06 MEQ/ML) 5 GM/10 ML SDV IV ONE (08:15)
[2020-02-11] MEDS ORDERED: Sodium Chloride 0.9% 1,000 ML IV ONE (08:19)
--- NOTE | 2020-02-11 08:19 | EDM.PDOC ---
ED HPI GENERAL MEDICAL PROBLEM - General Chief Complaint: Respiratory Problem Stated Complaint: ASTHMA, HARD TIME BREATHING Time Seen by Provider: 02/11/20 08:06 Source of Information: Reports: Patient History Limitations: Reports: No Limitations - History of Present Illness INITIAL COMMENTS - FREE TEXT/NARRATIVE: This 49 Year old female is admitted to the ED with a chief complaint of wheezing , SOB and coughing for 10 days. She states that her inhalers are not helping. She denies any chest pain, nausea or vomiting. She states that she had a mild fever a few days ago but not now. She denies any other symptoms. Onset: Gradual Duration: Week(s): (1.5 weeks) Location: Reports: Chest Context: Reports: Other (history of asthma) Headache Pain Score (Numeric/FACES): 4 - Related Data Allergies Allergy/AdvReac Type Severity Reaction Status Date / Time aspirin Allergy Unknown Other Verified 02/11/20 07:56 ketorolac tromethamine Allergy Rash Verified 02/11/20 07:56 [From Toradol] latex Allergy Rash Verified 02/11/20 07:56 NSAIDS (Non-Steroidal Allergy Other Verified 02/11/20 07:56 Anti-Inflamma Sulfa (Sulfonamide Allergy Edema Verified 02/11/20 07:56 Antibiotics) trazodone Allergy Hives Verified 02/11/20 07:56 Nsaid Allergy Other Uncoded 02/11/20 07:56 Home Meds: Home Meds Escitalopram Oxalate [Lexapro] 20 mg PO DAILY 02/27/16 [History] Gabapentin [Neurontin] 3,600 mg PO TID 02/27/16 [History] Levothyroxine [Synthroid] 50 mcg PO DAILY 02/27/16 [History] Omeprazole [Prilosec] 40 mg PO DAILY 02/27/16 [History] lamoTRIgine [Lamictal] 100 mg PO BID 02/27/16 [History] Acetaminophen [Tylenol] 650 mg PO Q4H PRN 10/10/17 [History] Albuterol [Ventolin HFA] 2 inh IH BID 10/10/17 [History] Albuterol [Ventolin HFA] 2 inh IH Q4H PRN 10/10/17 [History] Amitriptyline [Elavil] 75 mg PO BEDTIME 10/10/17 [History] Ibuprofen [Motrin] 800 mg PO Q8H PRN 10/10/17 [History] cloNIDine [Catapres] 0.2 mg PO BEDTIME 10/10/17 [History] Losartan/Hydrochlorothiazide [Hyzaar 100-12.5 Tablet] 200 mg PO DAILY 02/11/20 [ History] Past Medical History HEENT History: Reports: Impaired Vision Cardiovascular History: Reports: High Cholesterol, Hypertension Respiratory History: Reports: Asthma Gastrointestinal History: Reports: Gastritis, GERD Other Gastrointestinal History: hx ileus Genitourinary History: Reports: UTI, Recurrent Musculoskeletal History: Reports: Fibromyalgia Neurological History: Reports: Migraines Other Neuro History: wilbrans disease Psychiatric History: Reports: Addiction, Anxiety, Depression Endocrine/Metabolic History: Reports: Hypothyroidism Other Endocrine/Metabolic History: hypoglycemia Hematologic History: Reports: Other (See Below) Other Hematologic History: von wilabrauns disease Dermatologic History: Reports: Eczema - Infectious Disease History Infectious Disease History: Reports: Chicken Pox - Past Surgical History HEENT Surgical History: Reports: Adenoidectomy, Tonsillectomy Respiratory Surgical History: Reports: None GI Surgical History: Reports: None Female Surgical History: Reports: Hysterectomy Endocrine Surgical History: Reports: None Musculoskeletal Surgical History: Reports: None Dermatological Surgical History: Reports: None Social & Family History - Family History Family Medical History: Noncontributory - Tobacco Use Smoking Status *Q: Current Every Day Smoker Years of Tobacco use: 30 Packs/Tins Daily: 0.5 - Caffeine Use Caffeine Use: Reports: Coffee Caffeine Use Comment: daily - Recreational Drug Use Recreational Drug Use: No ED ROS GENERAL - Review of Systems Review Of Systems: See Below Constitutional: Reports: Fever (no fever or chills. Has fever two days ago but not since) HEENT: Reports: No Symptoms Respiratory: Reports: Shortness of Breath, Wheezing, Cough. Denies: Sputum Cardiovascular: Reports: No Symptoms Endocrine: Reports: No Symptoms GI/Abdominal: Reports: No Symptoms Musculoskeletal: Reports: No Symptoms Skin: Reports: No Symptoms Neurological: Reports: No Symptoms ED EXAM, GENERAL - Physical Exam Exam: See Below Exam Limited By: No Limitations General Appearance: Alert, WD/WN, No Apparent Distress Ears: Normal External Exam, Normal Canal, Hearing Grossly Normal, Normal TMs Nose: Normal Inspection, Normal Mucosa, No Blood Throat/Mouth: Normal Inspection, Normal Lips, Normal Oropharynx, Normal Voice Head: Atraumatic, Normocephalic Neck: Normal Inspection, Supple, Non-Tender, Full Range of Motion. No: Carotid Bruit, Lymphadenopathy (L), Lymphadenopathy (R) Respiratory/Chest: Chest Non-Tender, Wheezing (mild wheezing noted in both mid to upper lungs. Prolonged expiratory phase.), Prolonged Expiration. No: Rales , Rhonchi, Accessory Muscle Use Cardiovascular: Normal Peripheral Pulses, Regular Rate, Rhythm, No Edema, No Gallop, No JVD, No Murmur, No Rub Peripheral Pulses: 3+: Carotid (L), Radial (L), Radial (R), Dorsalis Pedis (L), Dorsalis Pedis (R), 4+: Carotid (R) GI/Abdominal: Normal Bowel Sounds, Soft, Non-Tender, No Organomegaly, No Distention, No Abnormal Bruit, No Mass (Female) Exam: Deferred Rectal (Female) Exam: Deferred Back Exam: Normal Inspection, Full Range of Motion Extremities: Normal Inspection, Normal Range of Motion, Non-Tender, No Pedal Edema, Normal Capillary Refill. No: Lobo's Sign Neurological: Alert, Oriented, CN II-XII Intact, Normal Reflexes Skin Exam: Warm, Dry, Intact, Normal Color, No Rash Lymphatic: No Adenopathy Course - Vital Signs Text/Narrative:: I discussed with Dr. Hatfield this patient at 9:44AM. I discussed with him all of her lab test and chest x-ray. She will be admitted to [facility]. The patient agrees with the admission plan. Last Recorded V/S: Last Vital Signs Temp 98.1 F 02/11/20 08:00 Pulse 89 02/11/20 08:50 Resp 20 02/11/20 08:50 BP 160/98 H 02/11/20 08:50 Pulse Ox 95 02/11/20 08:50 - Orders/Labs/Meds Orders: Active Orders 24 hr Category Date Time Status Admission Status [Patient Status] [ADT] Stat ADT 02/11/20 09:46 Ordered RT Aerosol Therapy [RC] ASDIRECTED Care 02/11/20 08:14 Active B-TYPE NATRIURETIC PEPTIDE,BNP [CHEM] Stat Lab 02/11/20 08:24 Received COMPREHENSIVE METABOLIC PN,CMP [CHEM] Stat Lab 02/11/20 08:24 Received MAGNESIUM [CHEM] Stat Lab 02/11/20 08:24 Received TROPONIN I [CHEM] Stat Lab 02/11/20 08:24 Received Azithromycin [Zithromax] Med 02/11/20 10:00 Ordered 500 mg PO Q24H Isolation [COMM] Routine Oth 02/11/20 08:16 Active Medication Orders Azithromycin (Zithromax) 500 mg PO Q24H CRYSTAL Labs: Laboratory Tests 02/11/20 Range/Units 08:24 WBC 7.23 (4.0-11.0) K/uL RBC 3.78 L (4.30-5.90) M/uL Hgb 12.4 (12.0-16.0) g/dL Hct 36.1 (36.0-46.0) % MCV 95.5 (80.0-98.0) fL MCH 32.8 H (27.0-32.0) pg MCHC 34.3 (31.0-37.0) g/dL RDW Std Deviation 42.8 (28.0-62.0) fl RDW Coeff of Augusto 12 (11.0-15.0) % Plt Count 372 (150-400) K/uL MPV 8.80 (7.40-12.00) fL Neut % (Auto) 56.0 (48.0-80.0) % Lymph % (Auto) 31.8 (16.0-40.0) % Jenkins % (Auto) 8.6 (0.0-15.0) % Eos % (Auto) 3.2 (0.0-7.0) % Baso % (Auto) 0.4 (0.0-1.5) % Neut # (Auto) 4.1 (1.4-5.7) K/uL Lymph # (Auto) 2.3 (0.6-2.4) K/uL Jenkins # (Auto) 0.6 (0.0-0.8) K/uL Eos # (Auto) 0.2 (0.0-0.7) K/uL Baso # (Auto) 0.0 (0.0-0.1) K/uL Nucleated RBC % 0.0 /100WBC Nucleated RBCs # 0 K/uL Meds: Medications Generic Name Dose Route Start Last Admin Trade Name Freq PRN Reason Stop Dose Admin Azithromycin 500 mg 02/11/20 10:00 Zithromax PO Q24H CRYSTAL Discontinued Medications Generic Name Dose Route Start Last Admin Trade Name Cristal PRN Reason Stop Dose Admin Albuterol/Ipratropium 3 ml 02/11/20 08:13 02/11/20 08:19 Duoneb 3.0-0.5 Mg/3 Ml NEB 02/11/20 08:14 3 ml ONETIME ONE Administration Magnesium Sulfate 1 gm/ Sodium 52 mls @ 104 mls/hr 02/11/20 08:30 02/11/20 08 :29 Chloride IV 02/11/20 08:59 104 mls/hr ONETIME ONE Administration Sodium Chloride 1,000 mls @ 1,000 mls/hr 02/11/20 08:19 02/11/20 08:29 Normal Saline IV 02/11/20 09:18 1,000 mls/hr .Bolus ONE Administration Methylprednisolone Sodium Succinate 125 mg 02/11/20 08:12 02/11/20 08:19 Solu-Medrol IVPUSH 02/11/20 08:13 125 mg ONETIME ONE Administration Ondansetron HCl 4 mg 02/11/20 09:35 Zofran IVPUSH 02/11/20 09:36 ONETIME ONE Departure - Departure Time of Disposition: 09:50 Disposition: Refer to Observation Condition: Fair Clinical Impression: COPD exacerbation, Bronchitis - Discharge Information *PRESCRIPTION DRUG MONITORING PROGRAM REVIEWED*: Yes *COPY OF PRESCRIPTION DRUG MONITORING REPORT IN PATIENT FUNMI: Yes Referrals: Fransico Blackmon MD [Primary Care Provider] - Forms: ED Department Discharge Sepsis Event Note - Evaluation Sepsis Screening Result: No Definite Risk - Focused Exam Vital Signs: Vital Signs Temp Pulse Resp BP Pulse Ox 02/11/20 08:50 89 20 160/98 H 95 02/11/20 08:00 98.1 F 86 26 H 189/105 H 97 Date Exam was Performed: 02/11/20 Time Exam was Performed: 09:51 - My Orders Last 24 Hours: My Active Orders 02/11/20 08:14 RT Aerosol Therapy [RC] ASDIRECTED 02/11/20 08:16 Isolation [COMM] Routine 02/11/20 08:24 B-TYPE NATRIURETIC PEPTIDE,BNP [CHEM] Stat COMPREHENSIVE METABOLIC PN,CMP [CHEM] Stat MAGNESIUM [CHEM] Stat TROPONIN I [CHEM] Stat 02/11/20 09:46 Admission Status [Patient Status] [ADT] Stat 02/11/20 10:00 Azithromycin [Zithromax] 500 mg PO Q24H - Assessment/Plan Last 24 Hours: My Active Orders 02/11/20 08:14 RT Aerosol Therapy [RC] ASDIRECTED 02/11/20 08:16 Isolation [COMM] Routine 02/11/20 08:24 B-TYPE NATRIURETIC PEPTIDE,BNP [CHEM] Stat COMPREHENSIVE METABOLIC PN,CMP [CHEM] Stat MAGNESIUM [CHEM] Stat TROPONIN I [CHEM] Stat 02/11/20 09:46 Admission Status [Patient Status] [ADT] Stat 02/11/20 10:00 Azithromycin [Zithromax] 500 mg PO Q24H
[2020-02-11] MEDS ORDERED: Ondansetron 4 MG/2 ML SDV IVPUSH ONE (09:35)
--- NOTE | 2020-02-11 09:41 | CR ---
Chest: 2 views of the chest are obtained. Comparison: Prior chest x-ray of 04/13/19. Heart size and mediastinum are within normal limits. Slight increased interstitial change is noted within both lungs from prior exam presumably due to bronchitis. Slight areas of atelectasis believed to be present within the lingula. Bony structures appear within normal limits for the patient's age. Impression: 1. Increased interstitial change from prior exam most likely representing mild bronchitis. 2. Mild lingular atelectasis. Diagnostic code #3 This report was dictated in [place] Standard Time
[2020-02-11] MEDS ORDERED: Azithromycin 250 MG Tab PO SCH (10:00)
[2020-02-11 10:22] LABS: BLOOD UREA NITROGEN,BUN 8 mg/dL (7.0-18.0); CARBON DIOXIDE,CO2 27.8 mmol/L (21.0-32.0); CHLORIDE,CL 104 mmol/L (98-107); GLUCOSE RANDOM 99 mg/dL (74-106); POTASSIUM,K 3.2 mmol/L (3.5-5.1); SODIUM,NA 141 mmol/L (136-145)
[2020-02-11] MEDS ORDERED: Potassium Chloride 20 MEQ Tab.ER PO ONE (10:25)
[2020-02-11] MEDS ORDERED: Ondansetron 4 MG/2 ML SDV IVPUSH PRN (10:31)
--- NOTE | 2020-02-11 10:41 | PCM.HP.2 ---
H&P History of Present Illness - General Date of Service: 02/11/20 Admit Problem/Dx: Admission Diagnosis/Problem Admission Diagnosis/Problem COPD, Moderate chronic obstructive pulmonary disease Source of Information: Patient, Old Records History Limitations: Reports: No Limitations - History of Present Illness Initial Comments - Free Text/Narative: This 49 year old female with pmh of HTN, GERD, von Willebrand disease, fibromyalgia and chronic back pain presented to the ED with complaints of dyspnea, cough, fatigue and a fever 1 week ago. She reports she initially had a fever on 01/30, it was around 103 deg F. earlier that day she was at the dentist and she was given Clindamycin for a broken tooth, where a large filling was placed. She reports after the appointment she felt fatigued and went to bed, then awoke with a fever at 103. She kept taking her clindamycin, then was seen by PCP at [facility] for these concerns. She was tested for the flu, which was negative. She says the temp was only that one time and then it didn't return , but she has continued to feel ill. She reports dry cough with post nasal drip. She deals with chronic rhinosinusitis using Claritin and Flonase. She at that time was reporting ear pain, which was sharp shooting, now she reports the ear pain is gone. The biggest complaints is dyspnea and wheezing. She also notes that since she was started on antibiotics she has had some incontinent stools, that are very loose and sudden. No abdominal pain but is nauseated and no urinary concerns. She reports she is a smoker, at most she was smoking 2 ppd and is down to 1/2-1 ppd which over the last week or so since she has gotten sick. No alcohol use and no recreational drug use or vaping. She denies recent travel or around any other sick contacts that she is aware of. In the ED CBC WNL. Hypokalemia noted 3.2, no elevation in BUN or Cr. CXR in the ED revealed increased interstitial change from previous exams, likely mild bronchitis. She was treated with magnesium, Azithromycin, Solumedrol and Duonebs in the ED. She is feeling a little better but still has dyspnea with exertion. She will be admitted for acute bronchitis suspicion for COPD due hx tobacco dependence. PCP, Dr Blackmon. Headache Pain Score (Numeric/FACES): 4 - Related Data Allergies/Adverse Reactions: Allergies Allergy/AdvReac Type Severity Reaction Status Date / Time aspirin Allergy Unknown Other Verified 02/11/20 07:56 ketorolac tromethamine Allergy Rash Verified 02/11/20 07:56 [From Toradol] latex Allergy Rash Verified 02/11/20 07:56 NSAIDS (Non-Steroidal Allergy Other Verified 02/11/20 07:56 Anti-Inflamma Sulfa (Sulfonamide Allergy Edema Verified 02/11/20 07:56 Antibiotics) trazodone Allergy Hives Verified 02/11/20 07:56 Nsaid Allergy Other Uncoded 02/11/20 07:56 Home Medications: Home Meds Escitalopram Oxalate [Lexapro] 20 mg PO DAILY 02/27/16 [History] Gabapentin [Neurontin] 3,600 mg PO TID 02/27/16 [History] Levothyroxine [Synthroid] 50 mcg PO DAILY 02/27/16 [History] Omeprazole [Prilosec] 40 mg PO DAILY 02/27/16 [History] lamoTRIgine [Lamictal] 100 mg PO BID 02/27/16 [History] Acetaminophen [Tylenol] 650 mg PO Q4H PRN 10/10/17 [History] Albuterol [Ventolin HFA] 2 inh IH BID 10/10/17 [History] Albuterol [Ventolin HFA] 2 inh IH Q4H PRN 10/10/17 [History] Amitriptyline [Elavil] 75 mg PO BEDTIME 10/10/17 [History] Ibuprofen [Motrin] 800 mg PO Q8H PRN 10/10/17 [History] cloNIDine [Catapres] 0.2 mg PO BEDTIME 10/10/17 [History] Losartan/Hydrochlorothiazide [Hyzaar 100-12.5 Tablet] 200 mg PO DAILY 02/11/20 [ History] Past Medical History HEENT History: Reports: Impaired Vision Cardiovascular History: Reports: High Cholesterol, Hypertension. Denies: Afib, Blood Clots/VTE/DVT, [place], Stents Respiratory History: Reports: Asthma, SOB. Denies: COPD Gastrointestinal History: Reports: Gastritis, GERD Other Gastrointestinal History: hx ileus Genitourinary History: Reports: UTI, Recurrent Musculoskeletal History: Reports: Back Pain, Chronic (lumbar stenosis, degenerative disk disease, R sided lumbar spina radiculopathy), Fibromyalgia Neurological History: Reports: Migraines Psychiatric History: Reports: Addiction, Anxiety, Depression Endocrine/Metabolic History: Reports: Hypothyroidism Other Endocrine/Metabolic History: hypoglycemia Hematologic History: Reports: Other (See Below) Other Hematologic History: von Willebrand disease Dermatologic History: Reports: Eczema - Infectious Disease History Infectious Disease History: Reports: Chicken Pox - Past Surgical History HEENT Surgical History: Reports: Adenoidectomy, Tonsillectomy Respiratory Surgical History: Reports: None GI Surgical History: Reports: None Female Surgical History: Reports: Hysterectomy Endocrine Surgical History: Reports: None Musculoskeletal Surgical History: Reports: None Dermatological Surgical History: Reports: None Social & Family History - Family History Family Medical History: Noncontributory - Tobacco Use Smoking Status *Q: Current Every Day Smoker Years of Tobacco use: 30 Packs/Tins Daily: 0.5 - Caffeine Use Caffeine Use: Reports: Coffee Caffeine Use Comment: daily - Recreational Drug Use Recreational Drug Use: No H&P Review of Systems - Review of Systems: Review Of Systems: See Below General: Reports: Fever (previously, has not had a fever in the last few days. ) , Malaise, Fatigue HEENT: Reports: Sinus Congestion (chronic rhinosinusitis) Pulmonary: Reports: Shortness of Breath, Wheezing, Cough. Denies: Sputum, Hemoptysis Cardiovascular: Reports: Dyspnea on Exertion. Denies: Lightheadedness Gastrointestinal: Reports: Diarrhea, Nausea. Denies: Abdominal Pain, Black Stool, Bloody Stool, Vomiting Genitourinary: Reports: No Symptoms. Denies: Dysuria, Frequency, Burning Musculoskeletal: Reports: No Symptoms Skin: Reports: No Symptoms Psychiatric: Reports: No Symptoms Neurological: Reports: No Symptoms Hematologic/Lymphatic: Reports: No Symptoms Immunologic: Reports: No Symptoms Exam - Exam Exam: See Below - Vital Signs Vital Signs: Last Vital Signs Temp 98.1 F 02/11/20 08:00 Pulse 87 02/11/20 10:15 Resp 20 02/11/20 10:15 BP 155/89 H 02/11/20 10:15 Pulse Ox 96 02/11/20 10:15 Weight: 99.79 kg - Exam Quality Assessment: No: Supplemental Oxygen General: Alert, Oriented, Cooperative HEENT: Conjunctiva Clear, Mucosa Moist & [place], Posterior Pharynx Clear, Pupils Equal Neck: Supple, Trachea Midline Lungs: Decreased Breath Sounds (bilaterally, ), Wheezing (bilaterally, faint). No: Normal Respiratory Effort (dyspnea) Cardiovascular: Regular Rate, Regular Rhythm, Normal S1, Normal S2 GI/Abdominal Exam: Normal Bowel Sounds, Soft, Non-Tender Back Exam: Normal Inspection, Full Range of Motion Extremities: Normal Inspection, Normal Range of Motion, Non-Tender, No Pedal Edema Neuro Extensive - Mental Status: Alert, Oriented x3, Normal Mood/Affect Neuro Extensive - Motor, Sensory, Reflexes: CN II-XII Intact Psychiatric: Alert, Normal Affect, Normal Mood - Patient Data Lab Results Last 24 hrs: Laboratory Results - last 24 hr 02/11/20 02/11/20 Range/Units 08:24 09:45 WBC 7.23 (4.0-11.0) K/uL RBC 3.78 L (4.30-5.90) M/uL Hgb 12.4 (12.0-16.0) g/dL Hct 36.1 (36.0-46.0) % MCV 95.5 (80.0-98.0) fL MCH 32.8 H (27.0-32.0) pg MCHC 34.3 (31.0-37.0) g/dL RDW Std Deviation 42.8 (28.0-62.0) fl RDW Coeff of Augusto 12 (11.0-15.0) % Plt Count 372 (150-400) K/uL MPV 8.80 (7.40-12.00) fL Neut % (Auto) 56.0 (48.0-80.0) % Lymph % (Auto) 31.8 (16.0-40.0) % [place] % (Auto) 8.6 (0.0-15.0) % Eos % (Auto) 3.2 (0.0-7.0) % Baso % (Auto) 0.4 (0.0-1.5) % Neut # (Auto) 4.1 (1.4-5.7) K/uL Lymph # (Auto) 2.3 (0.6-2.4) K/uL [place] # (Auto) 0.6 (0.0-0.8) K/uL Eos # (Auto) 0.2 (0.0-0.7) K/uL Baso # (Auto) 0.0 (0.0-0.1) K/uL Nucleated RBC % 0.0 /100WBC Nucleated RBCs # 0 K/uL Sodium 141 (136-145) mmol/L Potassium 3.2 L (3.5-5.1) mmol/L Chloride 104 (98-107) mmol/L Carbon Dioxide 27.8 (21.0-32.0) mmol/L BUN 8 (7.0-18.0) mg/dL Creatinine 0.8 (0.6-1.0) mg/dL Est Cr Clr Drug Dosing 71.84 mL/min Estimated GFR (MDRD) > 60.0 ml/min Glucose 99 (74-106) mg/dL Calcium 8.1 L (8.5-10.1) mg/dL Magnesium 2.4 (1.8-2.4) mg/dL Total Bilirubin 0.4 (0.2-1.0) mg/dL AST 18 (15-37) IU/L ALT 24 (14-63) IU/L Alkaline Phosphatase 84 (46-116) U/L Troponin I < 0.050 (0.000-0.056) ng/mL Total Protein 6.7 (6.4-8.2) g/dL Albumin 3.0 L (3.4-5.0) g/dL Globulin 3.7 (2.6-4.0) g/dL Albumin/Globulin Ratio 0.8 L (0.9-1.6) Result Diagrams: 02/11/20 08:24 02/11/20 09:45 Dae Results Last 24 hrs: Microbiology 02/11/20 08:29 Influenza Type A Antigen Screen - Final Nasopharyngeal Swab NEGATIVE INFLUENZA A VIRUS AG REFERENCE RANGE: NEGATIVE Influenza Type B Antigen Screen - Final NEGATIVE INFLUENZA B VIRUS AG REFERENCE RANGE: NEGATIVE Sepsis Event Note - Evaluation Sepsis Screening Result: No Definite Risk - Focused Exam Vital Signs: Vital Signs Temp Pulse Resp BP Pulse Ox 02/11/20 10:15 87 20 155/89 H 96 02/11/20 08:50 89 20 160/98 H 95 02/11/20 08:00 98.1 F 86 26 H 189/105 H 97 Date Exam was Performed: 02/11/20 Time Exam was Performed: 10:36 - Problem List (1) Bronchitis SNOMED Code(s): 05791116 ICD Code: J40 - BRONCHITIS, NOT SPECIFIED ACUTE OR CHRONIC Status: Acute Current Visit: Yes (2) COPD exacerbation SNOMED Code(s): 592842696 ICD Code: J44.1 - CHRONIC OBSTRUCTIVE PULMONARY DISEASE W (ACUTE) EXACERBATION Status: Suspected Current Visit: Yes (3) Diarrhea SNOMED Code(s): 92805106 ICD Code: R19.7 - DIARRHEA, UNSPECIFIED Status: Acute Current Visit: Yes (4) Lumbar stenosis SNOMED Code(s): 71641617 ICD Code: M48.061 - SPINAL STENOSIS, LUMBAR REGION WITHOUT NEUROGENIC MAICOL Status: Chronic Current Visit: Yes (5) Fibromyalgia SNOMED Code(s): 291284648 ICD Code: M79.7 - FIBROMYALGIA Status: Chronic Current Visit: No (6) History of asthma SNOMED Code(s): 440533476 ICD Code: Z87.09 - PERSONAL HISTORY OF OTHER DISEASES OF THE RESPIRATORY SYSTEM Status: Chronic Current Visit: No (7) Hypertension SNOMED Code(s): 71140282 ICD Code: I10 - ESSENTIAL (PRIMARY) HYPERTENSION Status: Chronic Current Visit: No Qualifiers: Hypertension type: essential hypertension Qualified Code(s): I10 - Essential (primary) hypertension (8) Smoker SNOMED Code(s): 82642806 ICD Code: F17.200 - NICOTINE DEPENDENCE, UNSPECIFIED, UNCOMPLICATED Status : Chronic Current Visit: No (9) Von Willebrand disease SNOMED Code(s): 142549175 ICD Code: D68.0 - VON WILLEBRAND'S DISEASE Status: Chronic Current Visit : Yes Problem List Initiated/Reviewed/Updated: Yes Orders Last 24hrs: Active Orders 24 hr Category Date Time Status Admission Status [Patient Status] [ADT] Stat ADT 02/11/20 09:46 Active Antiembolic Devices [RC] PER UNIT ROUTINE Care 02/11/20 10:33 Ordered Intake and Output [RC] QSHIFT Care 02/11/20 10:32 Ordered Oxygen Therapy [RC] PRN Care 02/11/20 10:31 Ordered RT Aerosol Therapy [RC] ASDIRECTED Care 02/11/20 08:14 Active RT Aerosol Therapy [RC] ASDIRECTED Care 02/11/20 10:34 Ordered Up With Assistance [RC] ASDIRECTED Care 02/11/20 10:31 Ordered VTE/DVT Education [RC] PER UNIT ROUTINE Care 02/11/20 10:31 Ordered Vital Signs [RC] Q4H Care 02/11/20 10:31 Ordered Respiratory Care Assess and Treatment [CONS] Routine Cons 02/11/20 10:31 Ordered Regular Diet [DIET] Diet 02/11/20 Lunch Ordered B-TYPE NATRIURETIC PEPTIDE,BNP [CHEM] Stat Lab 02/11/20 08:24 Received C DIFFICILE AG/TOXIN W/REFLEX [RM] Routine Lab 02/11/20 10:24 Ordered CBC WITH AUTO DIFF [HEME] AM Lab 02/12/20 05:11 Ordered COMPREHENSIVE METABOLIC PN,CMP [CHEM] AM Lab 02/12/20 05:11 Ordered MAGNESIUM [CHEM] AM Lab 02/12/20 05:11 Ordered Acetaminophen [Tylenol] Med 02/11/20 10:31 Ordered 650 mg PO Q4H PRN Albuterol/Ipratropium [DuoNeb 3.0-0.5 MG/3 ML] Med 02/11/20 14:00 Ordered 3 ml NEB Q4HRRT Azithromycin [Zithromax] Med 02/11/20 10:00 Active 500 mg PO Q24H Ondansetron [Zofran] Med 02/11/20 10:31 Ordered 4 mg IVPUSH Q4H PRN Potassium Chloride [Klor-Con M20] Med 02/11/20 10:25 Once 40 meq PO ONETIME ONE Isolation [COMM] Routine Oth 02/11/20 08:16 Active Sequential Compression Device [OM.PC] Per Unit Routine Oth 02/11/20 10:32 Ordered Resuscitation Status Routine Resus Stat 02/11/20 10:31 Ordered Medication Orders Acetaminophen (Tylenol) 650 mg PO Q4H PRN PRN Reason: Pain (mild 1-3) Albuterol/Ipratropium (Duoneb 3.0-0.5 Mg/3 Ml) 3 ml NEB Q4HRRT CRYSTAL Azithromycin (Zithromax) 500 mg PO Q24H CRYSTAL Last Admin: 02/11/20 09:57 Dose: 500 mg Ondansetron HCl (Zofran) 4 mg IVPUSH Q4H PRN PRN Reason: Nausea Potassium Chloride (Klor-Con M20) 40 meq PO ONETIME ONE Stop: 02/11/20 10:26 Assessment/Plan Comment:: This 49 year old female admitted with suspected COPD exacerbation, bronchitis, and diarrhea 1. COPD exacerbation, suspected/ bronchitis - No official diagnosis of COPD, but has significant tobacco dependence and hx asthma - Will treat with Solumedrol, Duonebs, and Azithromycin - Has no return of fevers, had one episode of a fever at home nearly 10 days ago. - No leukocytosis or leukopenia noted. - Encourage IS use - Counseled on Smoking cessation - Continue Claritin and Flonase 2. Diarrhea - Has had 2 antibiotics in the last 10 days, Doxycycline and Clindamycin. - Will test for C diff - Hypokalemia noted, will replace orally. magnesium stable. - Contact isolation until Cdiff testing returns. 3. HTN - reports she has been out of medications for 3 days - Will restart Hyzaar, Clonidine - Monitor. 4. Lumbar stenosis, chronic back pain with radiculopathy, fibromyalgia - Continue Amitriptyline, Lamotrigine, Lexapro and Gabapentin 5. Hypothyroidism: - Continue Levothyroxine VTE prophylaxis: SCDs only, hx von Willebrand disease Code status: Full Dispo: 1-2 days. - Mortality Measure Prognosis:: Good
[2020-02-11] MEDS ORDERED: Ibuprofen 800 MG Tab PO PRN (11:21)
[2020-02-11] MEDS: Acetaminophen 325 MG Tab PO PRN ×3 (11:24→21:24)
[2020-02-11] MEDS: Hydrochlorothiazide/Losartan 12.5-50 mg Tab PO SCH (12:12)
[2020-02-11] MEDS: Albuterol/Ipratropium 3.0-0.5 MG/3 ML Neb Soln NEB SCH ×3 (13:13→21:30)
[2020-02-11] MEDS ORDERED: Gabapentin 300 MG Cap PO SCH (14:00)
[2020-02-11] MEDS ORDERED: cloNIDine 0.1 MG Tab PO SCH (21:00)
[2020-02-11] MEDS ORDERED: Amitriptyline 25 MG Tab PO SCH (21:00)
[2020-02-11] MEDS: lamoTRIgine 100 MG Tab PO SCH (21:22)
[2020-02-11] MEDS: methylPREDNISolone Sodium Succinate 40 MG/1 ML SDV IVPUSH SCH (21:25)
[2020-02-11] MEDS ORDERED: Gabapentin 300 MG Cap PO PRN (22:00)
[2020-02-12] MEDS: Albuterol/Ipratropium 3.0-0.5 MG/3 ML Neb Soln NEB SCH ×2 (02:17→06:20)
[2020-02-12 06:41] LABS: BLOOD UREA NITROGEN,BUN 10 mg/dL (7.0-18.0); CARBON DIOXIDE,CO2 26.1 mmol/L (21.0-32.0); CHLORIDE,CL 104 mmol/L (98-107); GLUCOSE RANDOM 141 mg/dL (74-106); POTASSIUM,K 4.5 mmol/L (3.5-5.1); SODIUM,NA 140 mmol/L (136-145)
[2020-02-12] MEDS ORDERED: Levothyroxine 50 MCG Tab PO SCH (07:00)
[2020-02-12] MEDS ORDERED: Omeprazole 20 MG Cap.CR PO SCH (07:30)
[2020-02-12 08:08] VITALS: BP 141/92; PULSE 87
--- NOTE | 2020-02-12 08:10 | PCM.DCSUM1 ---
Discharge Summary - Discharge Data Discharge Date: 02/12/20 Discharge Disposition: Home, Self-Care 01 Condition: Good - Referral to Home Health Primary Care Physician: Fransico Blackmon MD - Patient Summary/Data Consults: Consultations 02/11/20 10:31 Respiratory Care Assess and Treatment [CONS] Routine Hospital Course: 49 year old female with pmh of HTN, GERD, von Willebrand disease, fibromyalgia and chronic back pain who presented to the ED with complaints of dyspnea, cough , fatigue and a fever 1 week ago. In the ED CBC WNL. Hypokalemia noted 3.2, no elevation in BUN or Cr. CXR in the ED revealed increased interstitial change from previous exams, likely mild bronchitis. She was treated with magnesium, Azithromycin, Solumedrol and Duonebs in the ED. She is feeling a little better but still has dyspnea with exertion. She will be admitted for acute bronchitis suspicion for COPD due hx tobacco dependence. She was treated with solumedrol, duonebs and azithromycin. She was monitored overnight and her symptoms have improved. She is safe for discharged today. She was discharged on prednisone, azithromycin and duonebs. She was instructed to return if she develops worsening shortness of breath. She was instructed to self isolate until the return of the COVID19 results. - Patient Instructions Other/Special Instructions: remain in self isolation until results of COVID 19 testing - Discharge Plan *PRESCRIPTION DRUG MONITORING PROGRAM REVIEWED*: Yes *COPY OF PRESCRIPTION DRUG MONITORING REPORT IN PATIENT FUNMI: Yes Prescriptions/Med Rec: Albuterol/Ipratropium [DuoNeb 3.0-0.5 MG/3 ML] 3 ml NEB Q6HRRT PRN #30 neb PRN Reason: wheezing Azithromycin [Zithromax] 500 mg PO Q24H #4 tablet predniSONE [Prednisone] 50 mg PO DAILY #4 tablet Home Medications: Home Meds Escitalopram Oxalate [Lexapro] 20 mg PO DAILY 02/27/16 [History] Levothyroxine [Synthroid] 50 mcg PO DAILY 02/27/16 [History] Omeprazole [Prilosec] 40 mg PO DAILY 02/27/16 [History] Acetaminophen [Tylenol] 650 mg PO Q4H PRN 10/10/17 [History] Albuterol [Ventolin HFA] 2 inh IH BID 10/10/17 [History] Albuterol [Ventolin HFA] 2 inh IH Q4H PRN 10/10/17 [History] Amitriptyline [Elavil] 75 mg PO BEDTIME 10/10/17 [History] Ibuprofen [Motrin] 800 mg PO Q8H PRN 10/10/17 [History] cloNIDine [Catapres] 0.2 mg PO BEDTIME 10/10/17 [History] Gabapentin [Neurontin] 1,200 mg PO TID PRN 02/11/20 [History] Losartan/Hydrochlorothiazide [Losartan-HCTZ 100-25 MG] 1 each PO DAILY 02/11/20 [History] lamoTRIgine [Lamotrigine] 200 mg PO BID 02/11/20 [History] Albuterol/Ipratropium [DuoNeb 3.0-0.5 MG/3 ML] 3 ml NEB Q6HRRT PRN #30 neb 02/11 [Rx] Azithromycin [Zithromax] 500 mg PO Q24H #4 tablet 02/12/20 [Rx] predniSONE [Prednisone] 50 mg PO DAILY #4 tablet 02/12/20 [Rx] Patient Handouts: Chronic Obstructive Pulmonary Disease, [id number] Referrals: Fransico Blackmon MD [Primary Care Provider] - 03/11/20 3:45 pm - Discharge Summary/Plan Comment DC Time >30 min.: No - Patient Data Vitals - Most Recent: Last Vital Signs Temp 36.6 C 02/12/20 04:42 Pulse 88 02/12/20 04:42 Resp 19 02/12/20 04:42 BP 144/89 H 02/12/20 04:42 Pulse Ox 95 02/12/20 04:42 Weight - Most Recent: 99.79 kg I&O - Last 24 hours: Intake & Output 02/11/20 02/12/20 02/12/20 22:59 06:59 14:59 Intake Total 1000 1000 Output Total 500 Balance 1000 500 Lab Results - Last 24 hrs: Laboratory Results - last 24 hr 02/11/20 02/11/20 02/11/20 Range/Units 08:24 08:24 09:45 WBC 7.23 (4.0-11.0) K/uL RBC 3.78 L (4.30-5.90) M/uL Hgb 12.4 (12.0-16.0) g/dL Hct 36.1 (36.0-46.0) % MCV 95.5 (80.0-98.0) fL MCH 32.8 H (27.0-32.0) pg MCHC 34.3 (31.0-37.0) g/dL RDW Std Deviation 42.8 (28.0-62.0) fl RDW Coeff of Augusto 12 (11.0-15.0) % Plt Count 372 (150-400) K/uL MPV 8.80 (7.40-12.00) fL Neut % (Auto) 56.0 (48.0-80.0) % Lymph % (Auto) 31.8 (16.0-40.0) % [place] % (Auto) 8.6 (0.0-15.0) % Eos % (Auto) 3.2 (0.0-7.0) % Baso % (Auto) 0.4 (0.0-1.5) % Neut # (Auto) 4.1 (1.4-5.7) K/uL Lymph # (Auto) 2.3 (0.6-2.4) K/uL [place] # (Auto) 0.6 (0.0-0.8) K/uL Eos # (Auto) 0.2 (0.0-0.7) K/uL Baso # (Auto) 0.0 (0.0-0.1) K/uL Nucleated RBC % 0.0 /100WBC Nucleated RBCs # 0 K/uL Sodium 141 (136-145) mmol/L Potassium 3.2 L (3.5-5.1) mmol/L Chloride 104 (98-107) mmol/L Carbon Dioxide 27.8 (21.0-32.0) mmol/L BUN 8 (7.0-18.0) mg/dL Creatinine 0.8 (0.6-1.0) mg/dL Est Cr Clr Drug Dosing 71.84 mL/min Estimated GFR (MDRD) > 60.0 ml/min Glucose 99 (74-106) mg/dL Calcium 8.1 L (8.5-10.1) mg/dL Magnesium 2.4 (1.8-2.4) mg/dL Total Bilirubin 0.4 (0.2-1.0) mg/dL AST 18 (15-37) IU/L ALT 24 (14-63) IU/L Alkaline Phosphatase 84 (46-116) U/L Troponin I < 0.050 (0.000-0.056) ng/mL B-Natriuretic Peptide 91 (<100) PG/ML Total Protein 6.7 (6.4-8.2) g/dL Albumin 3.0 L (3.4-5.0) g/dL Globulin 3.7 (2.6-4.0) g/dL Albumin/Globulin Ratio 0.8 L (0.9-1.6) 02/12/20 02/12/20 Range/Units 05:36 05:36 WBC 12.08 H (4.0-11.0) K/uL RBC 3.51 L (4.30-5.90) M/uL Hgb 11.5 L (12.0-16.0) g/dL Hct 34.1 L (36.0-46.0) % MCV 97.2 (80.0-98.0) fL MCH 32.8 H (27.0-32.0) pg MCHC 33.7 (31.0-37.0) g/dL RDW Std Deviation 43.8 (28.0-62.0) fl RDW Coeff of [place] 13 (11.0-15.0) % Plt Count 405 H (150-400) K/uL MPV 8.60 (7.40-12.00) fL Neut % (Auto) 81.0 H (48.0-80.0) % Lymph % (Auto) 14.6 L (16.0-40.0) % [place] % (Auto) 4.2 (0.0-15.0) % Eos % (Auto) 0.0 (0.0-7.0) % Baso % (Auto) 0.2 (0.0-1.5) % Neut # (Auto) 9.8 H (1.4-5.7) K/uL Lymph # (Auto) 1.8 (0.6-2.4) K/uL [place] # (Auto) 0.5 (0.0-0.8) K/uL Eos # (Auto) 0.0 (0.0-0.7) K/uL Baso # (Auto) 0.0 (0.0-0.1) K/uL Nucleated RBC % 0.0 /100WBC Nucleated RBCs # 0 K/uL Sodium 140 (136-145) mmol/L Potassium 4.5 (3.5-5.1) mmol/L Chloride 104 (98-107) mmol/L Carbon Dioxide 26.1 (21.0-32.0) mmol/L BUN 10 (7.0-18.0) mg/dL Creatinine 0.9 (0.6-1.0) mg/dL Est Cr Clr Drug Dosing 64.32 mL/min Estimated GFR (MDRD) > 60.0 ml/min Glucose 141 H (74-106) mg/dL Calcium 9.1 (8.5-10.1) mg/dL Magnesium 2.4 (1.8-2.4) mg/dL Total Bilirubin 0.2 (0.2-1.0) mg/dL AST 15 (15-37) IU/L ALT 21 (14-63) IU/L Alkaline Phosphatase 78 (46-116) U/L Troponin I (0.000-0.056) ng/mL B-Natriuretic Peptide (<100) PG/ML Total Protein 6.6 (6.4-8.2) g/dL Albumin 2.8 L (3.4-5.0) g/dL Globulin 3.8 (2.6-4.0) g/dL Albumin/Globulin Ratio 0.7 L (0.9-1.6) KEN Results - Last 24 hrs: Microbiology 02/11/20 08:29 Influenza Type A Antigen Screen - Final Nasopharyngeal Swab NEGATIVE INFLUENZA A VIRUS AG REFERENCE RANGE: NEGATIVE Influenza Type B Antigen Screen - Final NEGATIVE INFLUENZA B VIRUS AG REFERENCE RANGE: NEGATIVE Med Orders - Current: Current Medications Acetaminophen (Tylenol) 650 mg PO Q4H PRN PRN Reason: Pain (mild 1-3) Last Admin: 02/11/20 21:24 Dose: 650 mg Albuterol/Ipratropium (Duoneb 3.0-0.5 Mg/3 Ml) 3 ml NEB Q4HRRT ON LICENSE OF [facility] Last Admin: 02/12/20 06:20 Dose: 3 ml Amitriptyline HCl (Elavil) 75 mg PO BEDTIME CRYSTAL Last Admin: 02/11/20 21:21 Dose: 75 mg Azithromycin (Zithromax) 500 mg PO Q24H ON LICENSE OF [facility] Clonidine HCl (Catapres) 0.2 mg PO BEDTIME ON LICENSE OF [facility] Last Admin: 02/11/20 21:24 Dose: 0.2 mg Escitalopram Oxalate (Lexapro) 20 mg PO DAILY ON LICENSE OF [facility] Gabapentin (Neurontin) 1,200 mg PO TID PRN PRN Reason: PAIN Last Admin: 02/11/20 22:37 Dose: 1,200 mg HCTZ/Losartan Potassium (Hyzaar 50-12.5 Mg) 2 tab PO DAILY ON LICENSE OF [facility] Last Admin: 02/11/20 12:12 Dose: 2 tab Ibuprofen (Motrin) 800 mg PO Q8H PRN PRN Reason: migraine Last Admin: 02/11/20 18:36 Dose: 800 mg Lamotrigine (Lamotrigine) 200 mg PO BID ON LICENSE OF [facility] Last Admin: 02/11/20 21:22 Dose: 200 mg Levothyroxine Sodium (Synthroid) 50 mcg PO DAILY@0700 ON LICENSE OF [facility] Last Admin: 02/12/20 07:28 Dose: 50 mcg Methylprednisolone Sodium Succinate (Solu-Medrol) 80 mg IVPUSH Q12H ON LICENSE OF [facility] Last Admin: 02/11/20 21:25 Dose: 80 mg Omeprazole (Omeprazole) 40 mg PO ACBREAKFAST ON LICENSE OF [facility] Last Admin: 02/12/20 07:28 Dose: 40 mg Ondansetron HCl (Zofran) 4 mg IVPUSH Q4H PRN PRN Reason: Nausea Discontinued Medications Albuterol/Ipratropium (Duoneb 3.0-0.5 Mg/3 Ml) 3 ml NEB ONETIME ONE Stop: 02/11/20 08:14 Last Admin: 02/11/20 08:19 Dose: 3 ml Azithromycin (Zithromax) 500 mg PO Q24H ON LICENSE OF [facility] Last Admin: 02/11/20 09:57 Dose: 500 mg Gabapentin (Neurontin) 1,200 mg PO TID ON LICENSE OF [facility] Last Admin: 02/11/20 14:36 Dose: 1,200 mg Magnesium Sulfate 1 gm/ Sodium (Chloride) 52 mls @ 104 mls/hr IV ONETIME ONE Stop: 02/11/20 08:59 Last Admin: 02/11/20 08:29 Dose: 104 mls/hr Sodium Chloride (Normal Saline) 1,000 mls @ 1,000 mls/hr IV .Bolus ONE Stop: 02/11/20 09:18 Last Admin: 02/11/20 08:29 Dose: 1,000 mls/hr Methylprednisolone Sodium Succinate (Solu-Medrol) 125 mg IVPUSH ONETIME ONE Stop: 02/11/20 08:13 Last Admin: 02/11/20 08:19 Dose: 125 mg Ondansetron HCl (Zofran) 4 mg IVPUSH ONETIME ONE Stop: 02/11/20 09:36 Last Admin: 02/11/20 09:57 Dose: 4 mg Potassium Chloride (Klor-Con M20) 40 meq PO ONETIME ONE Stop: 02/11/20 10:26 Last Admin: 02/11/20 11:23 Dose: 40 meq
[2020-02-12] MEDS: methylPREDNISolone Sodium Succinate 40 MG/1 ML SDV IVPUSH SCH (08:56)
[2020-02-12] MEDS: Hydrochlorothiazide/Losartan 12.5-50 mg Tab PO SCH (08:56)
[2020-02-12] MEDS: lamoTRIgine 100 MG Tab PO SCH (08:57)
[2020-02-12] MEDS ORDERED: Azithromycin 250 MG Tab PO SCH (09:00)
[2020-02-12] MEDS ORDERED: Escitalopram 10 MG Tab PO SCH (09:00)
== END 2020-02-12 08:20 | disposition home or self-care (01) ==
LOC: MW.ED 07:52 → MW.MS 10:17
PROVIDERS: ADMIT Internal Medicine; ATTEND Internal Medicine
DX: J44.1 Chronic obstructive pulmonary disease with (acute) exacerbation (principal); R19.7 Diarrhea, unspecified; M48.061 Spinal stenosis, lumbar region without neurogenic claudication; M79.7 Fibromyalgia; I10 Essential (primary) hypertension; D68.0 Von Willebrand disease; G89.29 Other chronic pain; M54.16 Radiculopathy, lumbar region; E03.9 Hypothyroidism, unspecified; K21.9 Gastro-esophageal reflux disease without esophagitis; F17.210 Nicotine dependence, cigarettes, uncomplicated; F32.9 Major depressive disorder, single episode, unspecified; F41.9 Anxiety disorder, unspecified; Z79.890 Hormone replacement therapy; Z79.899 Other long term (current) drug therapy; Z87.09 Personal history of other diseases of the respiratory system; Z88.5 Allergy status to narcotic agent; Z88.2 Allergy status to sulfonamides; Z88.8 Allergy status to other drugs, medicaments and biological substances
CPT/HCPCS: 36415; 71046; 80053; 83735; 83880; 84484; 85025; 87804; 94640; 96365; 96375; 99285; A9270; J2405; J2920; J2930; J3475; J7030; J7050; U0001; J7620-GY

== ENCOUNTER 2020-03-08 23:03 | Emergency (ER) | payer OTHER ==
--- NOTE | 2020-03-08 23:35 | EDM.PDOC ---
ED HPI GENERAL MEDICAL PROBLEM - General Chief Complaint: Abdominal Pain Stated Complaint: UPPER LEFT QUADRANT PAIN Time Seen by Provider: 03/08/20 23:25 Source of Information: Reports: Patient - History of Present Illness INITIAL COMMENTS - FREE TEXT/NARRATIVE: The patient is a 50-year-old female presents to the ER for abdominal pain. She states that this pain is in the left upper quadrant and started about 3 weeks ago. The pain at first was very mild and it is steady and has progressively been getting worse. Movement makes it worse, and she gets intermittent waves of nausea but no vomiting, no diarrhea, no fevers, no chills, no back pain, no lower abdominal pain, no other acute complaints. She states that she has follow -up with her primary care physician soon secondary to a recent asthma exacerbation hospitalization and she was trying to hold out for that visit to talk to her PCP about it but she cannot handle the pain any longer. LUQ Pain Score (Numeric/FACES): 7 - Related Data Allergies Allergy/AdvReac Type Severity Reaction Status Date / Time aspirin Allergy Unknown Other Verified 03/08/20 23:16 ketorolac tromethamine Allergy Rash Verified 03/08/20 23:16 [From Toradol] latex Allergy Rash Verified 03/08/20 23:16 NSAIDS (Non-Steroidal Allergy Other Verified 03/08/20 23:16 Anti-Inflamma Sulfa (Sulfonamide Allergy Edema Verified 03/08/20 23:16 Antibiotics) trazodone Allergy Hives Verified 03/08/20 23:16 Nsaid Allergy Other Uncoded 03/08/20 23:16 Home Meds: Home Meds Escitalopram Oxalate [Lexapro] 20 mg PO DAILY 02/27/16 [History] Levothyroxine [Synthroid] 50 mcg PO DAILY 02/27/16 [History] Omeprazole [Prilosec] 40 mg PO DAILY 02/27/16 [History] Acetaminophen [Tylenol] 650 mg PO Q4H PRN 10/10/17 [History] Albuterol [Ventolin HFA] 2 inh IH BID 10/10/17 [History] Amitriptyline [Elavil] 75 mg PO BEDTIME 10/10/17 [History] Ibuprofen [Motrin] 800 mg PO Q8H PRN 10/10/17 [History] cloNIDine [Catapres] 0.2 mg PO BEDTIME 10/10/17 [History] Gabapentin [Neurontin] 1,200 mg PO TID PRN 02/11/20 [History] Losartan/Hydrochlorothiazide [Losartan-HCTZ 100-25 MG] 1 each PO DAILY 02/11/20 [History] lamoTRIgine [Lamotrigine] 200 mg PO BID 02/11/20 [History] Albuterol/Ipratropium [DuoNeb 3.0-0.5 MG/3 ML] 3 ml NEB Q6HRRT PRN #30 neb 02/11 [Rx] Past Medical History HEENT History: Reports: Impaired Vision Cardiovascular History: Reports: High Cholesterol, Hypertension Respiratory History: Reports: Asthma, SOB Gastrointestinal History: Reports: Gastritis, GERD Other Gastrointestinal History: hx ileus Genitourinary History: Reports: UTI, Recurrent Musculoskeletal History: Reports: Back Pain, Chronic, Fibromyalgia Other Musculoskeletal History: L4 herniated Neurological History: Reports: Migraines Other Neuro History: wilbrans disease Psychiatric History: Reports: Addiction, Anxiety, Depression Endocrine/Metabolic History: Reports: Hypothyroidism Other Endocrine/Metabolic History: hypoglycemia Hematologic History: Reports: Other (See Below) Other Hematologic History: von Willebrand disease Dermatologic History: Reports: Eczema - Infectious Disease History Infectious Disease History: Reports: Chicken Pox - Past Surgical History HEENT Surgical History: Reports: Adenoidectomy, Tonsillectomy Respiratory Surgical History: Reports: None GI Surgical History: Reports: None Female Surgical History: Reports: Hysterectomy Endocrine Surgical History: Reports: None Musculoskeletal Surgical History: Reports: None Dermatological Surgical History: Reports: None Social & Family History - Family History Family Medical History: Noncontributory - Tobacco Use Smoking Status *Q: Current Every Day Smoker Years of Tobacco use: 1 Packs/Tins Daily: 30 - Caffeine Use Caffeine Use: Reports: Coffee Caffeine Use Comment: daily - Recreational Drug Use Recreational Drug Use: No ED ROS GENERAL - Review of Systems Review Of Systems: See Below (Positive for abdominal pain, positive for nausea, negative for vomiting, negative for fevers, negative for back pain, negative shortness of breath, all other Positives and pertinent negatives as per HPI. All other pertinent systems were reviewed and are negative) ED EXAM, GI/ABD - Physical Exam Exam: See Below Text/Narrative:: Constitutional: Nontoxic, she looks extremely uncomfortable and moves very slowly and painfully HEENT.: Normocephalic, Atraumatic, PERRL, EOMI, External ears are atraumatic, nares are patent without epistaxis Neck: Normal range of motion, Trachea Midline, No stridor Respiratory.: No respiratory distress, No tachypnea, Lungs Clear to Auscultation bilaterally without wheezes, rales, or rhonchi Cardiovascular.: Tachycardic rate and Rhythm without murmurs, rubs, or gallops , good peripheral perfusion GI: Obese, abdomen is soft and nondistended, there is moderate to severe left sided abdominal tenderness Genital Urinary: Deferred Musculoskeletal: Good range of motion. All 4 extremities present and atraumatic , no edema Back: Full Range of Motion, no CVA tenderness Skin: Warm, Dry, Color is ethnicity appropriate, No acute rash. Lymphatic: No lymphadenopathy noted Neurological: Alert, Awake and oriented x 3, No focal deficits noted appreciate , GCS 15 Psych: Affect, Judgement, mood normal Course - Vital Signs Text/Narrative:: Differential diagnosis especially given other unusual anatomical abnormality such as situs inversus, includes ascending cholangitis, choledocholithiasis, pancreatitis, diverticulitis, diverticular abscess, incarcerated hernia, abdominal mass, cardiopulmonary problems such as pleural effusion, left lower lobe pneumonia, left lower lobe pulmonary infarction, pulmonary embolism, etc. Patient was given a dose of Dilaudid 1 mg IV and Zofran 4 mg IV. The patient's lab work overall is unremarkable with the exception of a mildly elevated lactate which is the above normal but overall still nonspecific. The patient was given a bolus of normal saline and she asked for some more pain medication so she was given a second dose of Dilaudid for a total of [address] scan of the abdomen and pelvis was performed and was interpreted by radiology as negative. I looked at the scan myself and I agree. As documented above I did consider cardiopulmonary pathology was considering a CTA to rule out a lower lobe pulmonary embolism and infarction but after the patient's analgesics she currently has a heart rate of 80 and given this, if the patient did have a large pulmonary emboli causing significant tachycardia this will not resolve secondary to analgesics. Other comorbidities such as mesenteric ischemia have been considered but I would expect that after 3 weeks of this, especially in someone with plenty of intraperitoneal fat that there should be some type of inflammatory changes on the CT scan. Thus, given that this is been ongoing for 3 weeks, with essentially unremarkable lab work, normalization of vital signs, and a negative CT scan I believe that the patient is stable for discharge and outpatient follow -up. Last Recorded V/S: Last Vital Signs Temp 35.2 C L 03/08/20 23:11 Pulse 90 03/09/20 00:13 Resp 16 03/09/20 00:13 BP 132/92 H 03/09/20 00:13 Pulse Ox 91 L 03/09/20 00:13 - Orders/Labs/Meds Orders: Active Orders 24 hr Category Date Time Status UA RFX KEN AND CULT IF INDIC [URIN] Stat Lab 03/08/20 23:22 Ordered Labs: Laboratory Tests 03/08/20 03/08/20 03/08/20 Range/Units 23:40 23:40 23:40 WBC 8.28 (4.0-11.0) K/uL RBC 4.04 L (4.30-5.90) M/uL Hgb 13.2 (12.0-16.0) g/dL Hct 39.6 (36.0-46.0) % MCV 98.0 (80.0-98.0) fL MCH 32.7 H (27.0-32.0) pg MCHC 33.3 (31.0-37.0) g/dL RDW Std Deviation 46.0 (28.0-62.0) fl RDW Coeff of Augusto 13 (11.0-15.0) % Plt Count 346 (150-400) K/uL MPV 8.80 (7.40-12.00) fL Neut % (Auto) 41.5 L (48.0-80.0) % Lymph % (Auto) 47.5 H (16.0-40.0) % Burnet % (Auto) 6.4 (0.0-15.0) % Eos % (Auto) 4.1 (0.0-7.0) % Baso % (Auto) 0.5 (0.0-1.5) % Neut # (Auto) 3.4 (1.4-5.7) K/uL Lymph # (Auto) 3.9 H (0.6-2.4) K/uL Burnet # (Auto) 0.5 (0.0-0.8) K/uL Eos # (Auto) 0.3 (0.0-0.7) K/uL Baso # (Auto) 0.0 (0.0-0.1) K/uL Nucleated RBC % 0.0 /100WBC Nucleated RBCs # 0 K/uL Lactate 2.4 H* (0.20-2.00) mmol/L Sodium 142 (136-145) mmol/L Potassium 3.5 (3.5-5.1) mmol/L Chloride 104 (98-107) mmol/L Carbon Dioxide 27.2 (21.0-32.0) mmol/L BUN 10 (7.0-18.0) mg/dL Creatinine 1.2 H (0.6-1.0) mg/dL Est Cr Clr Drug Dosing 47.36 mL/min Estimated GFR (MDRD) 47.2 ml/min Glucose 148 H (74-106) mg/dL Calcium 8.7 (8.5-10.1) mg/dL Total Bilirubin 0.2 (0.2-1.0) mg/dL AST 17 (15-37) IU/L ALT 30 (14-63) IU/L Alkaline Phosphatase 82 (46-116) U/L Total Protein 7.0 (6.4-8.2) g/dL Albumin 3.4 (3.4-5.0) g/dL Globulin 3.6 (2.6-4.0) g/dL Albumin/Globulin Ratio 0.9 (0.9-1.6) Lipase 89 (73-393) U/L Meds: Medications Discontinued Medications Generic Name Dose Route Start Last Admin Trade Name Cristal PRN Reason Stop Dose Admin Hydromorphone HCl 1 mg 03/08/20 23:23 03/08/20 23:44 Dilaudid IVPUSH 03/08/20 23:24 1 mg ONETIME ONE Administration Hydromorphone HCl 1 mg 03/09/20 00:41 03/09/20 00:44 Dilaudid IVPUSH 03/09/20 00:42 1 mg ONETIME ONE Administration Hydromorphone HCl Confirm 03/09/20 00:40 Dilaudid Administered 03/09/20 00:46 Dose 1 mg .ROUTE .STK-MED ONE Sodium Chloride 1,000 mls @ 999 mls/hr 03/08/20 23:59 03/09/20 00:07 Normal Saline IV 03/09/20 00:59 999 mls/hr .Bolus ONE Administration Iopamidol 100 ml 03/09/20 00:28 03/09/20 00:31 Isovue-370 (76%) IVPUSH 03/09/20 00:29 100 ml ONETIME STA Administration Ondansetron HCl 4 mg 03/08/20 23:23 03/08/20 23:44 Zofran IVPUSH 03/08/20 23:24 4 mg ONETIME ONE Administration Departure - Departure Time of Disposition: :29 Disposition: Home, Self-Care 01 Condition: Good Clinical Impression: Abdominal pain - Discharge Information *PRESCRIPTION DRUG MONITORING PROGRAM REVIEWED*: Yes *COPY OF PRESCRIPTION DRUG MONITORING REPORT IN PATIENT FUNMI: No Referrals: Fransico Blackmon MD [Primary Care Provider] - Forms: ED Department Discharge Sepsis Event Note - Evaluation Sepsis Screening Result: No Definite Risk - Focused Exam Vital Signs: Vital Signs Temp Pulse Resp BP Pulse Ox 03/09/20 00:13 90 16 132/92 H 91 L 03/08/20 23:11 35.2 C L 120 H 20 145/107 H 96 Date Exam was Performed: 03/09/20 Time Exam was Performed: 01:26 - My Orders Last 24 Hours: My Active Orders 03/08/20 23:22 UA RFX KEN AND CULT IF INDIC [URIN] Stat - Assessment/Plan Last 24 Hours: My Active Orders 03/08/20 23:22 UA RFX KEN AND CULT IF INDIC [URIN] Stat
[2020-03-08] MEDS: Ondansetron 4 MG/2 ML SDV IVPUSH ONE (23:44)
[2020-03-08] MEDS: HYDROmorphone 1 MG/ML Syringe IVPUSH ONE (23:44)
[2020-03-09 00:05] LABS: CARBON DIOXIDE,CO2 27.2 mmol/L (21.0-32.0); POTASSIUM,K 3.5 mmol/L (3.5-5.1)
[2020-03-09] MEDS: Sodium Chloride 0.9% 1,000 ML IV ONE (00:07)
[2020-03-09] MEDS: Iopamidol 755 Mg/ML 100 ML Bottle IVPUSH STA (00:31)
[2020-03-09] MEDS ORDERED: HYDROmorphone 1 MG/ML Syringe ONE (00:40)
[2020-03-09] MEDS: HYDROmorphone 1 MG/ML Syringe IVPUSH ONE (00:44)
--- NOTE | 2020-03-09 01:23 | CT ---
Indication: Abdominal pain Technique: Contrast enhanced axial CT imaging through the abdomen and pelvis. 100 mL Isovue 370 contrast agent was administered intravenously. Sagittal and coronal reconstructions are provided. Comparison: CT abdomen pelvis without contrast 04/13/2019 Findings: There is no significant abnormality of the liver, gallbladder, spleen, pancreas, adrenal glands, and kidneys. The portal vein is patent. There is normal caliber of the abdominal aorta. There is no abdominal lymphadenopathy. The stomach and duodenum are unremarkable. There are no abnormally dilated small bowel loops. The appendix is noninflamed. There is no colonic wall thickening. No inflammatory changes are demonstrated in the mesentery. There is no free intraperitoneal fluid or air. The visualized osseous structures are unremarkable. The included lung bases are clear. Impression: No acute process history of in the abdomen and pelvis. Please note that all CT scans at this facility use dose modulation, iterative reconstruction, and/or weight-based dosing when appropriate to reduce radiation dose to as low as reasonably achievable. Dictated by Ines Mendoza MD @ Mar 09 2020 1:07AM Signed by Dr. Ines Mendoza @ Mar 09 2020 1:22AM
[2020-03-09 01:46] VITALS: BP 108/68; PULSE 84
== END 2020-03-09 01:46 | disposition home or self-care (01) ==
LOC: MW.ED 23:03
DX: R10.12 Left upper quadrant pain (principal); E66.9 Obesity, unspecified; Z68.39 Body mass index [BMI] 39.0-39.9, adult; E78.00 Pure hypercholesterolemia, unspecified; I10 Essential (primary) hypertension; J45.909 Unspecified asthma, uncomplicated; K21.9 Gastro-esophageal reflux disease without esophagitis; F41.9 Anxiety disorder, unspecified; F32.9 Major depressive disorder, single episode, unspecified; E03.9 Hypothyroidism, unspecified; D68.0 Von Willebrand disease; F17.210 Nicotine dependence, cigarettes, uncomplicated; Z88.8 Allergy status to other drugs, medicaments and biological substances; Z91.040 Latex allergy status; Z88.2 Allergy status to sulfonamides; Z88.5 Allergy status to narcotic agent
CPT/HCPCS: 36415; 74177; 80053; 83605; 83690; 85025; 96361; 96374; 96375; 96376; 99284; J1170; J2405; J7030; Q9967; 99283

== ENCOUNTER 2020-06-23 17:23 | Emergency (ER) | payer OTHER ==
[2020-06-23] MEDS ORDERED: Ondansetron 4 MG/2 ML SDV IVPUSH ONE ×2 (18:10→20:16)
[2020-06-23] MEDS ORDERED: Sodium Chloride 0.9% 2.5 ML Syringe FLUSH PRN (18:10)
[2020-06-23] MEDS ORDERED: Sodium Chloride 0.9% 10 ML Syringe FLUSH PRN (18:10)
[2020-06-23] MEDS ORDERED: fentaNYL 50 MCG/ML SDV IVPUSH ONE ×2 (18:10→19:11)
[2020-06-23 19:17] LABS: CARBON DIOXIDE,CO2 26.1 mmol/L (21.0-32.0); POTASSIUM,K 3.2 mmol/L (3.5-5.1)
--- NOTE | 2020-06-23 19:46 | EDM.PDOC ---
<Matias Stafford - Last Filed: 06/23/20 20:56> ED HPI GENERAL MEDICAL PROBLEM - General Chief Complaint: Gastrointestinal Problem Stated Complaint: BLOOD WHILE DEFICATING Time Seen by Provider: 06/23/20 17:33 - Related Data Allergies Allergy/AdvReac Type Severity Reaction Status Date / Time aspirin Allergy Unknown Other Verified 06/23/20 18:16 ketorolac tromethamine Allergy Rash Verified 06/23/20 18:16 [From Toradol] latex Allergy Rash Verified 06/23/20 18:16 NSAIDS (Non-Steroidal Allergy Other Verified 06/23/20 18:16 Anti-Inflamma Sulfa (Sulfonamide Allergy Edema Verified 06/23/20 18:16 Antibiotics) trazodone Allergy Hives Verified 06/23/20 18:16 Nsaid Allergy Other Uncoded 03/08/20 23:16 Home Meds: Home Meds Levothyroxine [Synthroid] 50 mcg PO DAILY 02/27/16 [History] Omeprazole [Prilosec] 40 mg PO DAILY 02/27/16 [History] Acetaminophen [Tylenol] 650 mg PO Q4H PRN 10/10/17 [History] Albuterol [Ventolin HFA] 2 inh IH BID 10/10/17 [History] Amitriptyline [Elavil] 75 mg PO BEDTIME 10/10/17 [History] Ibuprofen [Motrin] 800 mg PO Q8H PRN 10/10/17 [History] cloNIDine [Catapres] 0.2 mg PO BEDTIME 10/10/17 [History] Gabapentin [Neurontin] 1,200 mg PO TID PRN 02/11/20 [History] Losartan/Hydrochlorothiazide [Losartan-HCTZ 100-25 MG] 1 each PO DAILY 02/11/20 [History] lamoTRIgine [Lamotrigine] 200 mg PO BID 02/11/20 [History] Albuterol/Ipratropium [DuoNeb 3.0-0.5 MG/3 ML] 3 ml NEB Q6HRRT PRN #30 neb 02/12/20 [Rx] Ciprofloxacin [Ciprofloxacin HCl] 500 mg PO BID #20 tab 06/23/20 [Rx] DULoxetine [Cymbalta] 30 mg PO DAILY 06/23/20 [History] Dicyclomine [Bentyl] 20 mg PO BID #10 tablet 06/23/20 [Rx] metroNIDAZOLE [Flagyl] 500 mg PO Q8H #30 tab 06/23/20 [Rx] ED ROS GENERAL - Review of Systems Review Of Systems: See Below Course - Re-Assessments/Exams Free Text/Narrative Re-Assessment/Exam: 06/23/20 19:00 patient was signed out to me from Dr. Bradford at this time. I performed a detailed physical examination, my examination was performed after ED treatments were initiated by the signout provider. Patient has been under the care of the previous provider up until this point. 06/23/20 21:30 Patient is clinically stable for discharge. I gave her a dose of zosyn in the ER, and I performed a repeat exam and did not appreciate new abnormal findings. Patient exhibits normal vital signs. Her abdomen is soft, nontender, no rebound or guarding. I do not suspect surgical abdomen. I advised the patient to return to the ER for reevaluation if symptoms worsened, including fever, worsening pain, or any other worrisome symptoms. I instructed the patient to follow up with GI within 7 days. MEDICAL DECISION MAKING: I reviewed the patients past medical records, lab and radiographic findings. I discussed the case with the patient. My differential diagnosis included: Patient exhibits leukocytosis with elevated CRP, CT demonstrated an inflammatory/infectious colitis. Patient is hemodynamically stable, not vomiting, stable for discharge with oral antibiotic treatment. I do not suspect atypical chest pain. She is not anemic, she does not require emergent transfusion despite complaint of rectal bleeding. Departure - Departure Time of Disposition: 20:56 Disposition: Home, Self-Care 01 Condition: Good Clinical Impression: Colitis, Rectal bleed - Discharge Information *PRESCRIPTION DRUG MONITORING PROGRAM REVIEWED*: Not Applicable *COPY OF PRESCRIPTION DRUG MONITORING REPORT IN PATIENT FUNMI: Not Applicable Prescriptions: Dicyclomine [Bentyl] 20 mg PO BID #10 tablet Ciprofloxacin [Ciprofloxacin HCl] 500 mg PO BID #20 tab metroNIDAZOLE [Flagyl] 500 mg PO Q8H #30 tab Instructions: Rectal Bleeding, Abdominal Pain, Adult, Colitis Referrals: Fransico Blackmon MD [Primary Care Provider] - 3 Days (for GI referral) Forms: ED Department Discharge Additional Instructions: The following information is given to patients seen in the emergency department who are being discharged to home. This information is to outline your options for follow-up care. We provide all patients seen in our emergency department with a follow-up referral. The need for follow-up, as well as the timing and circumstances, are variable depending upon the specifics of your emergency department visit. If you don't have a primary care physician on staff, we will provide you with a referral. We always advise you to contact your personal physician following an emergency department visit to inform them of the circumstance of the visit and for follow-up with them and/or the need for any referrals to a consulting specialist. The emergency department will also refer you to a specialist when appropriate. This referral assures that you have the opportunity for follow-up care with a specialist. All of these measure are taken in an effort to provide you with optimal care, which includes your follow-up. Under all circumstances we always encourage you to contact your private physician who remains a resource for coordinating your care. When calling for follow-up care, please make the office aware that this follow-up is from your recent emergency room visit. If for any reason you are refused follow-up, please contact the [facility] Emergency Department at and asked to speak to the emergency department charge nurse. If you do not have a primary care doctor, please follow up with the clinics below within 3-5 days. [facility] - Primary Care [address] [place] [id number] [facility] [address] [place] [id number] <Geovanni Bradford - Last Filed: 06/24/20 07:01> ED HPI GENERAL MEDICAL PROBLEM - General Source of Information: Reports: Patient, Old Records History Limitations: Reports: No Limitations - History of Present Illness INITIAL COMMENTS - FREE TEXT/NARRATIVE: 50-year-old female with past medical history of hypertension, fibromyalgia, COPD, von Willebrand disease presenting with abdominal pain and rectal bleeding. 3-week history of mucus in her stool along with intermittent bright red blood per rectum. She does have intervening solid stools. Reports a one-week history of worsening bilateral lower abdominal pain. 15 pound weight loss over the past month. No known history of malignancy or inflammatory bowel disease. Does report sensation of incomplete emptying when trying to have a bowel movement. Also reports foul-smelling stools. Does report multiple rounds of oral antibiotics over the past 2 months. Abdomen Pain Score (Numeric/FACES): 6 Past Medical History HEENT History: Reports: Impaired Vision Cardiovascular History: Reports: High Cholesterol, Hypertension Respiratory History: Reports: Asthma, SOB Gastrointestinal History: Reports: Gastritis, GERD Other Gastrointestinal History: hx ileus Genitourinary History: Reports: UTI, Recurrent STEEL MELTER History: Reports: None Musculoskeletal History: Reports: Back Pain, Chronic, Fibromyalgia Other Musculoskeletal History: L4 herniated Neurological History: Reports: Migraines Other Neuro History: wilbrans disease Psychiatric History: Reports: Addiction, Anxiety, Depression Endocrine/Metabolic History: Reports: Hypothyroidism Other Endocrine/Metabolic History: hypoglycemia Hematologic History: Reports: Other (See Below) Other Hematologic History: von Willebrand disease Immunologic History: Reports: None Oncologic (Cancer) History: Reports: None Dermatologic History: Reports: Eczema - Infectious Disease History Infectious Disease History: Reports: Chicken Pox - Past Surgical History Head Surgeries/Procedures: Reports: None HEENT Surgical History: Reports: Adenoidectomy, Tonsillectomy Cardiovascular Surgical History: Reports: None Respiratory Surgical History: Reports: None GI Surgical History: Reports: None Female Surgical History: Reports: Hysterectomy Endocrine Surgical History: Reports: None Neurological Surgical History: Reports: None Musculoskeletal Surgical History: Reports: None Oncologic Surgical History: Reports: None Dermatological Surgical History: Reports: None Social & Family History - Family History Family Medical History: Noncontributory - Tobacco Use Smoking Status *Q: Current Every Day Smoker Years of Tobacco use: 30 Packs/Tins Daily: 0.7 - Caffeine Use Caffeine Use: Reports: Coffee Caffeine Use Comment: daily - Recreational Drug Use Recreational Drug Use: No ED ROS GENERAL - Review of Systems Constitutional: Reports: Decreased Appetite. Denies: Fever, Chills, Malaise HEENT: Reports: No Symptoms Respiratory: Denies: Shortness of Breath, Hemoptysis Cardiovascular: Denies: Chest Pain Endocrine: Reports: No Symptoms GI/Abdominal: Reports: Abdominal Pain, Anorexia, Bloody Stool, Decreased Appet ite, Hematochezia, Mucous in Stool, Nausea. Denies: Black Stool, Diarrhea, Difficulty Swallowing, Hematemesis, Melena, Stool Incontinence, Vomiting : Denies: Dysuria, Flank Pain Musculoskeletal: Denies: Neck Pain, Back Pain Skin: Denies: Lesions Neurological: Denies: Headache ED EXAM, GI/ABD - Physical Exam Exam: See Below Text/Narrative:: Vital signs reviewed. Nursing notes reviewed. Constitutional: Awake, alert, non-distressed. Head: Normocephalic, atraumatic. Eyes: EOMI, conjunctiva normal, no discharge, no scleral icterus. Ears, Nose, Throat: External ears and nose normal, moist oral mucosa. Cardiovascular: 2+ radial pulse, capillary refill less than 2 seconds. Pulmonary: normal work of breathing, no accessory muscle use. Abdomen/GI: Obese, soft, minimal tenderness in the bilateral lower quadrants, nondistended, no guarding or rigidity, no masses. : Rectal exam revealed no fissures or masses, no hemorrhoids, mucus noted. No gross blood by digital examination. Musculoskeletal: No deformities. Integumentary: Appropriate color for ethnicity, warm, dry, no pallor or jaundice, no rash. Neurologic: Alert, answering questions appropriately, normal speech, no facial droop, moving all extremities well. Psychiatric: Appropriate mood and affect, normal thought process. Course - Vital Signs Text/Narrative:: Differential diagnosis includes but is not limited to: Inflammatory bowel disease, colon cancer, colitis, C. difficile diarrhea, coagulopathy, intra- abdominal infection, anemia, etc. IV access established and labs sent. Given fentanyl and Zofran. CBC shows leukocytosis and mild normocytic anemia, mild thrombocytosis. INR is normal. Mild hypokalemia, mild creatinine elevation. CRP is elevated at 16.00. Rectal examination revealed mucus but no masses, no gross blood, no fissures. Plan for CT imaging of the abdomen/pelvis. This is pending at time of shift change. Signed out in person to my colleague Dr. Stafford Refer to his note for final disposition. Last Recorded V/S: Last Vital Signs Temp 36.2 C 06/23/20 22:05 Pulse 90 06/23/20 22:05 Resp 18 06/23/20 22:05 BP 108/71 06/23/20 22:05 Pulse Ox 96 06/23/20 22:05 - Orders/Labs/Meds Orders: Active Orders 24 hr Category Date Time Status Pulse Oximetry [RC] ASDIRECTED Care 06/23/20 18:10 Active Saline Lock Insert [OM.PC] Stat Oth 06/23/20 18:10 Ordered Labs: Laboratory Tests 06/23/20 06/23/20 06/23/20 Range/Units 18:30 18:30 18:30 WBC 16.19 H (4.0-11.0) K/uL RBC 3.63 L (4.30-5.90) M/uL Hgb 11.8 L (12.0-16.0) g/dL Hct 35.2 L (36.0-46.0) % MCV 97.0 (80.0-98.0) fL MCH 32.5 H (27.0-32.0) pg MCHC 33.5 (31.0-37.0) g/dL RDW Std Deviation 44.5 (28.0-62.0) fl RDW Coeff of Augusto 13 (11.0-15.0) % Plt Count 407 H (150-400) K/uL MPV 8.60 (7.40-12.00) fL Neut % (Auto) 72.2 (48.0-80.0) % Lymph % (Auto) 19.2 (16.0-40.0) % [place] % (Auto) 5.6 (0.0-15.0) % Eos % (Auto) 2.8 (0.0-7.0) % Baso % (Auto) 0.2 (0.0-1.5) % Neut # (Auto) 11.7 H (1.4-5.7) K/uL Lymph # (Auto) 3.1 H (0.6-2.4) K/uL [place] # (Auto) 0.9 H (0.0-0.8) K/uL Eos # (Auto) 0.5 (0.0-0.7) K/uL Baso # (Auto) 0.0 (0.0-0.1) K/uL Nucleated RBC % 0.0 /100WBC Nucleated RBCs # 0 K/uL ESR 67 H (0-29) mm/hr INR 0.99 APTT 31.2 (18.6-31.3) SEC Sodium (136-145) mmol/L Potassium (3.5-5.1) mmol/L Chloride (98-107) mmol/L Carbon Dioxide (21.0-32.0) mmol/L BUN (7.0-18.0) mg/dL Creatinine (0.6-1.0) mg/dL Est Cr Clr Drug Dosing mL/min Estimated GFR (MDRD) ml/min Glucose (74-106) mg/dL Calcium (8.5-10.1) mg/dL Total Bilirubin (0.2-1.0) mg/dL AST (15-37) IU/L ALT (14-63) IU/L Alkaline Phosphatase (46-116) U/L C-Reactive Protein (0.00-0.90) mg/dL Total Protein (6.4-8.2) g/dL Albumin (3.4-5.0) g/dL Globulin (2.6-4.0) g/dL Albumin/Globulin Ratio (0.9-1.6) Blood Type 06/23/20 06/23/20 Range/Units 18:30 18:32 WBC (4.0-11.0) K/uL RBC (4.30-5.90) M/uL Hgb (12.0-16.0) g/dL Hct (36.0-46.0) % MCV (80.0-98.0) fL MCH (27.0-32.0) pg MCHC (31.0-37.0) g/dL RDW Std Deviation (28.0-62.0) fl RDW Coeff of Augusto (11.0-15.0) % Plt Count (150-400) K/uL MPV (7.40-12.00) fL Neut % (Auto) (48.0-80.0) % Lymph % (Auto) (16.0-40.0) % [place] % (Auto) (0.0-15.0) % Eos % (Auto) (0.0-7.0) % Baso % (Auto) (0.0-1.5) % Neut # (Auto) (1.4-5.7) K/uL Lymph # (Auto) (0.6-2.4) K/uL [place] # (Auto) (0.0-0.8) K/uL Eos # (Auto) (0.0-0.7) K/uL Baso # (Auto) (0.0-0.1) K/uL Nucleated RBC % /100WBC Nucleated RBCs # K/uL ESR (0-29) mm/hr INR APTT (18.6-31.3) SEC Sodium 134 L (136-145) mmol/L Potassium 3.2 L (3.5-5.1) mmol/L Chloride 97 L (98-107) mmol/L Carbon Dioxide 26.1 (21.0-32.0) mmol/L BUN 8 (7.0-18.0) mg/dL Creatinine 1.2 H (0.6-1.0) mg/dL Est Cr Clr Drug Dosing 47.36 mL/min Estimated GFR (MDRD) 47.2 ml/min Glucose 97 (74-106) mg/dL Calcium 8.5 (8.5-10.1) mg/dL Total Bilirubin 0.5 (0.2-1.0) mg/dL AST 14 L (15-37) IU/L ALT 19 (14-63) IU/L Alkaline Phosphatase 81 (46-116) U/L C-Reactive Protein 16.00 H (0.00-0.90) mg/dL Total Protein 7.4 (6.4-8.2) g/dL Albumin 3.2 L (3.4-5.0) g/dL Globulin 4.2 H (2.6-4.0) g/dL Albumin/Globulin Ratio 0.8 L (0.9-1.6) Blood Type A POSITIVE Meds: Medications Discontinued Medications Generic Name Dose Route Start Last Admin Trade Name dEmondq PRN Reason Stop Dose Admin Fentanyl 50 mcg 06/23/20 18:10 06/23/20 18:34 Fentanyl IVPUSH 06/23/20 18:11 50 mcg ONETIME ONE Administration Fentanyl 50 mcg 06/23/20 19:11 06/23/20 19:20 Fentanyl IVPUSH 07/27/20 19:12 50 mcg ONETIME ONE Administration Sodium Chloride 1,000 mls @ 999 mls/hr 06/23/20 19:55 06/23/20 19:58 Normal Saline IV 06/23/20 20:55 999 mls/hr NOW STA Administration Piperacillin Sod/Tazobactam 50 mls @ 100 mls/hr 06/23/20 21:05 06/23/20 21:13 Sod 3.375 gm/ Sodium Chloride IV 06/23/20 21:34 100 mls/hr ONETIME ONE Administration Iopamidol 100 ml 06/23/20 19:59 06/23/20 20:00 Isovue Multipack-370 (76%) IVPUSH 06/23/20 20:00 100 ml ONETIME STA Administration Ondansetron HCl 4 mg 06/23/20 18:10 06/23/20 18:34 Zofran IVPUSH 06/23/20 18:11 4 mg ONETIME ONE Administration Ondansetron HCl 4 mg 06/23/20 20:16 06/23/20 20:19 Zofran IVPUSH 06/23/20 20:17 4 mg ONETIME ONE Administration Ondansetron HCl Confirm 06/23/20 20:17 06/24/20 00:59 Zofran Administered 06/23/20 20:18 Not Given Dose 4 mg .ROUTE .STK-MED ONE Sodium Chloride 10 ml 06/23/20 18:10 06/23/20 18:34 Saline Flush FLUSH 10 ml ASDIRECTED PRN Administration Keep Vein Open Sodium Chloride 2.5 ml 06/23/20 18:10 06/23/20 18:34 Saline Flush FLUSH 2.5 ml ASDIRECTED PRN Administration Keep Vein Open Sepsis Event Note (ED) - Evaluation Sepsis Screening Result: No Definite Risk - Focused Exam Vital Signs: Vital Signs Temp Pulse Resp BP Pulse Ox 06/23/20 22:05 36.2 C 90 18 108/71 96 06/23/20 21:14 89 18 111/61 96 06/23/20 19:21 92 18 109/70 96 - My Orders Last 24 Hours: My Active Orders 06/23/20 18:10 Pulse Oximetry [RC] ASDIRECTED Saline Lock Insert [OM.PC] Stat - Assessment/Plan Last 24 Hours: My Active Orders 06/23/20 18:10 Pulse Oximetry [RC] ASDIRECTED Saline Lock Insert [OM.PC] Stat
[2020-06-23] MEDS ORDERED: Sodium Chloride 0.9% 1,000 ML IV STA (19:55)
[2020-06-23] MEDS ORDERED: Iopamidol 755 MG/ML 500 ML Multipack Bottle IVPUSH STA (19:59)
[2020-06-23] MEDS ORDERED: Ondansetron 4 MG/2 ML SDV ONE (20:17)
--- NOTE | 2020-06-23 20:40 | CT ---
INDICATION: Lower abdominal pain, concern for CA versus new IBD. TECHNIQUE: CT abdomen and pelvis acquired with 100 cc Isovue 370 IV contrast. Coronal and sagittal reconstructions. COMPARISON: CT of the abdomen pelvis 03/09/2020. FINDINGS: There is new long segment wall thickening, mucosal hyperenhancement, and pericolonic fat stranding involving the descending and sigmoid colon. There are no diverticula in the region. Findings most likely represent infectious or inflammatory colitis. No pneumatosis. No focal fluid collection. No intraperitoneal free air or fluid. Negative appendix. No small bowel dilation. Stable tiny low-attenuation lesion in the inferior right hepatic lobe which most likely represents a benign cyst or hemangioma. Hepatic and portal veins are patent. The gallbladder, spleen, pancreas, kidneys, and adrenal glands are negative. Symmetric enhancement the kidneys. No hydronephrosis. No obstructing urinary calculi. The bladder is normal in appearance. Hysterectomy. No lymphadenopathy. The bones are unremarkable. The lung bases are clear. IMPRESSION: Infectious or inflammatory colitis involving the descending and sigmoid colon. Please note that all CT scans at this facility use dose modulation, iterative reconstruction, and/or weight-based dosing when appropriate to reduce radiation dose to as low as reasonably achievable. Dictated by Jillian Rodriguez MD @ Jun 23 2020 8:28PM Signed by Dr. Jillian Rodriguez @ Jun 23 2020 8:38PM
[2020-06-23] MEDS ORDERED: Piperacillin/Tazobactam 3.375 GM in Sodium Chloride 0.9% 50 ML IV ONE (21:05)
[2020-06-24 00:59] VITALS: BP 108/71; PULSE 90
== END 2020-06-23 22:05 | disposition home or self-care (01) ==
LOC: MW.ED 17:23
DX: K52.9 Noninfective gastroenteritis and colitis, unspecified (principal); I10 Essential (primary) hypertension; K21.9 Gastro-esophageal reflux disease without esophagitis; J45.909 Unspecified asthma, uncomplicated; F41.9 Anxiety disorder, unspecified; F32.9 Major depressive disorder, single episode, unspecified; E03.9 Hypothyroidism, unspecified; G43.909 Migraine, unspecified, not intractable, without status migrainosus; F17.210 Nicotine dependence, cigarettes, uncomplicated; Z90.710 Acquired absence of both cervix and uterus; Z90.49 Acquired absence of other specified parts of digestive tract; Z88.6 Allergy status to analgesic agent; Z91.040 Latex allergy status; Z88.2 Allergy status to sulfonamides; Z79.899 Other long term (current) drug therapy
CPT/HCPCS: 36415; 74177; 80053; 85025; 85610; 85652; 85730; 86140; 86900; 86901; 96361; 96365; 96375; 96376; 99284; J2405; J2543; J3010; J7030; J7050; Q9967; 99283

== ENCOUNTER 2020-07-18 09:19 | Emergency (ER) | payer OTHER ==
[2020-07-18 09:39] VITALS: BP 174/104; PULSE 77
[2020-07-18] MEDS ORDERED: Ondansetron 4 MG/2 ML SDV IVPUSH ONE (09:41)
[2020-07-18] MEDS ORDERED: Sodium Chloride 0.9% 1,000 ML IV ONE (09:41)
[2020-07-18] MEDS ORDERED: Sodium Chloride 0.9% 2.5 ML Syringe FLUSH PRN (09:41)
[2020-07-18] MEDS ORDERED: Sodium Chloride 0.9% 10 ML Syringe FLUSH PRN (09:41)
[2020-07-18] MEDS ORDERED: Dicyclomine 10 MG Cap PO ONE (09:41)
--- NOTE | 2020-07-18 09:49 | EDM.PDOC ---
ED HPI GENERAL MEDICAL PROBLEM - General Chief Complaint: Headache Stated Complaint: HEADACHE, FEVER Time Seen by Provider: 07/18/20 09:21 - History of Present Illness INITIAL COMMENTS - FREE TEXT/NARRATIVE: History of present illness: Patient presents to the ED with complaints of abdominal pain also with cough congestion runny nose sore throat and body aches. She states she has had a fever at home there is no fever present in the ED she states that her colitis is returned she was apparently treated in the ED for colitis 2 weeks ago with Flagyl and Cipro she also recently after this had a oral surgery in which she was given clindamycin IV and after this her symptoms of diarrhea and lower abdominal cramping tenesmus have returned. She denies any blood in her stool she is not had any vomiting although she is nauseous she denies any shortness of breath or chest pain nothing seems to make it better or worse Review of systems: As per history of present illness and below otherwise all systems reviewed and negative. Past medical history: As per history of present illness and as reviewed below otherwise noncontributory. Surgical history: As per history of present illness and as reviewed below otherwise noncontr ibutory. Social history: No reported history of drug or alcohol abuse. Family history: As per history of present illness and as reviewed below otherwise noncontributory. Physical exam: HEENT: Atraumatic, normocephalic, pupils reactive, negative for conjunctival pallor or scleral icterus, mucous membranes moist, throat clear, neck supple, nontender, trachea midline. Lungs: Clear to auscultation, breath sounds equal bilaterally, chest nontender. Heart: S1S2, regular, negative for clicks, rubs, or JVD. Abdomen: Soft, nondistended, diffuse abdominal tenderness which is moderate without guarding or rebound. Negative for masses or hepatosplenomegaly. Negative for costovertebral tenderness. Pelvis: Stable nontender. Genitourinary: Deferred. Rectal: Deferred. Extremities: Atraumatic, negative for cords or calf pain. Neurovascular unremarkable. Neuro: Awake, alert, oriented. Cranial nerves II through XII unremarkable. Cerebellum unremarkable. Motor and sensory unremarkable throughout. Exam nonfocal. Diagnostics: [] Therapeutics: [] Impression: Concerns for viral versus bacterial infection to include her colitis versus C. difficile and also COVID concerns. [] Plan: She gets nausea medicine fluid bolus and some dicyclomine for cramping labs will be sent then she will be reassessed. [] Definitive disposition and diagnosis as appropriate pending reevaluation and review of above. - Related Data Allergies Allergy/AdvReac Type Severity Reaction Status Date / Time aspirin Allergy Unknown Other Verified 07/18/20 09:34 ketorolac tromethamine Allergy Rash Verified 07/18/20 09:34 [From Toradol] latex Allergy Rash Verified 07/18/20 09:34 NSAIDS (Non-Steroidal Allergy Other Verified 07/18/20 09:34 Anti-Inflamma Sulfa (Sulfonamide Allergy Edema Verified 07/18/20 09:34 Antibiotics) trazodone Allergy Hives Verified 07/18/20 09:34 Nsaid Allergy Other Uncoded 07/18/20 09:34 Home Meds: Home Meds Levothyroxine [Synthroid] 50 mcg PO DAILY 02/27/16 [History] Omeprazole [Prilosec] 40 mg PO DAILY 02/27/16 [History] Acetaminophen [Tylenol] 650 mg PO Q4H PRN 10/10/17 [History] Albuterol [Ventolin HFA] 2 inh IH BID 10/10/17 [History] Amitriptyline [Elavil] 75 mg PO BEDTIME 10/10/17 [History] Ibuprofen [Motrin] 800 mg PO Q8H PRN 10/10/17 [History] cloNIDine [Catapres] 0.2 mg PO BEDTIME 10/10/17 [History] Gabapentin [Neurontin] 1,200 mg PO TID PRN 02/11/20 [History] Losartan/Hydrochlorothiazide [Losartan-HCTZ 100-25 MG] 1 each PO DAILY 02/11/20 [History] lamoTRIgine [Lamotrigine] 200 mg PO BID 02/11/20 [History] Albuterol/Ipratropium [DuoNeb 3.0-0.5 MG/3 ML] 3 ml NEB Q6HRRT PRN #30 neb 02/12/20 [Rx] DULoxetine [Cymbalta] 30 mg PO DAILY 06/23/20 [History] Dicyclomine [Bentyl] 20 mg PO BID #10 tablet 06/23/20 [Rx] Dicyclomine [Bentyl] 20 mg PO TID #20 tablet 07/18/20 [Rx] Past Medical History HEENT History: Reports: Impaired Vision Cardiovascular History: Reports: High Cholesterol, Hypertension Respiratory History: Reports: Asthma, SOB Gastrointestinal History: Reports: Gastritis, GERD Other Gastrointestinal History: hx ileus Genitourinary History: Reports: UTI, Recurrent [employer] History: Reports: None Musculoskeletal History: Reports: Back Pain, Chronic, Fibromyalgia Other Musculoskeletal History: L4 herniated Neurological History: Reports: Migraines Other Neuro History: wilbrans disease Psychiatric History: Reports: Addiction, Anxiety, Depression Endocrine/Metabolic History: Reports: Hypothyroidism Other Endocrine/Metabolic History: hypoglycemia Hematologic History: Reports: Other (See Below) Other Hematologic History: von Willebrand disease Immunologic History: Reports: None Oncologic (Cancer) History: Reports: None Dermatologic History: Reports: Eczema - Infectious Disease History Infectious Disease History: Reports: None - Past Surgical History Head Surgeries/Procedures: Reports: None HEENT Surgical History: Reports: Adenoidectomy, Tonsillectomy Cardiovascular Surgical History: Reports: None Respiratory Surgical History: Reports: None GI Surgical History: Reports: None Female Surgical History: Reports: Hysterectomy Endocrine Surgical History: Reports: None Neurological Surgical History: Reports: None Musculoskeletal Surgical History: Reports: None Oncologic Surgical History: Reports: None Dermatological Surgical History: Reports: None Social & Family History - Family History Family Medical History: Noncontributory - Tobacco Use Smoking Status *Q: Current Every Day Smoker Years of Tobacco use: 20 Packs/Tins Daily: 1 - Caffeine Use Caffeine Use: Reports: Coffee Caffeine Use Comment: daily - Recreational Drug Use Recreational Drug Use: No ED ROS GENERAL - Review of Systems Review Of Systems: See Below ED EXAM, GENERAL - Physical Exam Exam: See Below Course - Vital Signs Text/Narrative:: Patient is unable to produce a stool sample for C. difficile testing she is going to be sent home with a container to collect that. She is instructed to bring it back I cannot rule out C. difficile without this. she is encouraged to drink Gatorade and chicken soup for her upset stomach and follow-up with the primary care appointment that was set up during her visit today. Last Recorded V/S: Last Vital Signs Temp 37.0 C 07/18/20 09:35 Pulse 77 07/18/20 09:35 Resp 20 07/18/20 09:35 BP 174/104 H 08/21/20 09:35 Pulse Ox 98 07/18/20 09:35 - Orders/Labs/Meds Orders: Active Orders 24 hr Category Date Time Status C DIFFICILE AG/TOXIN W/REFLEX [RM] Stat Lab 07/18/20 09:43 Ordered Sodium Chloride 0.9% [Saline Flush] Med 07/18/20 09:41 Active 10 ml FLUSH ASDIRECTED PRN Sodium Chloride 0.9% [Saline Flush] Med 07/18/20 09:41 Active 2.5 ml FLUSH ASDIRECTED PRN Saline Lock Insert [OM.PC] Stat Oth 07/18/20 09:41 Ordered Medication Orders Sodium Chloride (Saline Flush) 10 ml FLUSH ASDIRECTED PRN PRN Reason: Keep Vein Open Last Admin: 07/18/20 10:07 Dose: 10 ml Documented by: [email or web address] Sodium Chloride (Saline Flush) 2.5 ml FLUSH ASDIRECTED PRN PRN Reason: Keep Vein Open Last Admin: 07/18/20 10:07 Dose: 2.5 ml Documented by: [email or web address] Labs: Laboratory Tests 07/18/20 07/18/20 07/18/20 Range/Units 09:43 09:59 10:24 WBC 8.15 (4.0-11.0) K/uL RBC 3.62 L (4.30-5.90) M/uL Hgb 11.9 L (12.0-16.0) g/dL Hct 35.5 L (36.0-46.0) % MCV 98.1 H (80.0-98.0) fL MCH 32.9 H (27.0-32.0) pg MCHC 33.5 (31.0-37.0) g/dL RDW Std Deviation 47.6 (28.0-62.0) fl RDW Coeff of Augusto 13 (11.0-15.0) % Plt Count 285 (150-400) K/uL MPV 9.00 (7.40-12.00) fL Neut % (Auto) 53.6 (48.0-80.0) % Lymph % (Auto) 30.2 (16.0-40.0) % [place] % (Auto) 9.2 (0.0-15.0) % Eos % (Auto) 6.6 (0.0-7.0) % Baso % (Auto) 0.4 (0.0-1.5) % Neut # (Auto) 4.4 (1.4-5.7) K/uL Lymph # (Auto) 2.5 H (0.6-2.4) K/uL [place] # (Auto) 0.8 (0.0-0.8) K/uL Eos # (Auto) 0.5 (0.0-0.7) K/uL Baso # (Auto) 0.0 (0.0-0.1) K/uL Nucleated RBC % 0.0 /100WBC Nucleated RBCs # 0 K/uL Sodium (136-145) mmol/L Potassium (3.5-5.1) mmol/L Chloride (98-107) mmol/L Carbon Dioxide (21.0-32.0) mmol/L BUN (7.0-18.0) mg/dL Creatinine (0.6-1.0) mg/dL Est Cr Clr Drug Dosing mL/min Estimated GFR (MDRD) ml/min Glucose (74-106) mg/dL Calcium (8.5-10.1) mg/dL Total Bilirubin (0.2-1.0) mg/dL AST (15-37) IU/L ALT (14-63) IU/L Alkaline Phosphatase (46-116) U/L Total Protein (6.4-8.2) g/dL Albumin (3.4-5.0) g/dL Globulin (2.6-4.0) g/dL Albumin/Globulin Ratio (0.9-1.6) Lipase (73-393) U/L Urine Color YELLOW Urine Appearance CLEAR Urine pH 6.5 (5.0-8.0) Ur Specific [place] <= 1.005 (1.001-1.035) Urine Protein NEGATIVE (NEGATIVE) mg/dL Urine Glucose (UA) NEGATIVE (NEGATIVE) mg/dL Urine Ketones NEGATIVE (NEGATIVE) mg/dL Urine Occult Blood SMALL H (NEGATIVE) Urine Nitrite NEGATIVE (NEGATIVE) Urine Bilirubin NEGATIVE (NEGATIVE) Urine Urobilinogen 0.2 (<2.0) EU/dL Ur Leukocyte Esterase NEGATIVE (NEGATIVE) Urine RBC 0-2 (0-2/HPF) Urine WBC 0-1 (0-5/HPF) Ur Epithelial Cells FEW (NONE-FEW) Urine Bacteria 1+ H (NEGATIVE) COVID-19 (VANESSA) NEGATIVE (NEGATIVE) 07/18/20 Range/Units 10:24 WBC (4.0-11.0) K/uL RBC (4.30-5.90) M/uL Hgb (12.0-16.0) g/dL Hct (36.0-46.0) % MCV (80.0-98.0) fL MCH (27.0-32.0) pg MCHC (31.0-37.0) g/dL RDW Std Deviation (28.0-62.0) fl RDW Coeff of Augusto (11.0-15.0) % Plt Count (150-400) K/uL MPV (7.40-12.00) fL Neut % (Auto) (48.0-80.0) % Lymph % (Auto) (16.0-40.0) % [place] % (Auto) (0.0-15.0) % Eos % (Auto) (0.0-7.0) % Baso % (Auto) (0.0-1.5) % Neut # (Auto) (1.4-5.7) K/uL Lymph # (Auto) (0.6-2.4) K/uL [place] # (Auto) (0.0-0.8) K/uL Eos # (Auto) (0.0-0.7) K/uL Baso # (Auto) (0.0-0.1) K/uL Nucleated RBC % /100WBC Nucleated RBCs # K/uL Sodium 138 (136-145) mmol/L Potassium 3.2 L (3.5-5.1) mmol/L Chloride 102 (98-107) mmol/L Carbon Dioxide 26.0 (21.0-32.0) mmol/L BUN 6 L (7.0-18.0) mg/dL Creatinine 0.8 (0.6-1.0) mg/dL Est Cr Clr Drug Dosing 71.03 mL/min Estimated GFR (MDRD) > 60.0 ml/min Glucose 103 (74-106) mg/dL Calcium 8.7 (8.5-10.1) mg/dL Total Bilirubin 0.4 (0.2-1.0) mg/dL AST 24 (15-37) IU/L ALT 31 (14-63) IU/L Alkaline Phosphatase 67 (46-116) U/L Total Protein 6.8 (6.4-8.2) g/dL Albumin 3.2 L (3.4-5.0) g/dL Globulin 3.6 (2.6-4.0) g/dL Albumin/Globulin Ratio 0.9 (0.9-1.6) Lipase 52 L (73-393) U/L Urine Color Urine Appearance Urine pH (5.0-8.0) Ur Specific [place] (1.001-1.035) Urine Protein (NEGATIVE) mg/dL Urine Glucose (UA) (NEGATIVE) mg/dL Urine Ketones (NEGATIVE) mg/dL Urine Occult Blood (NEGATIVE) Urine Nitrite (NEGATIVE) Urine Bilirubin (NEGATIVE) Urine Urobilinogen (<2.0) EU/dL Ur Leukocyte Esterase (NEGATIVE) Urine RBC (0-2/HPF) Urine WBC (0-5/HPF) Ur Epithelial Cells (NONE-FEW) Urine Bacteria (NEGATIVE) COVID-19 (VANESSA) (NEGATIVE) Meds: Medications Generic Name Dose Route Start Last Admin Trade Name Cristal PRN Reason Stop Dose Admin Sodium Chloride 10 ml 07/18/20 09:41 07/18/20 10:07 Saline Flush FLUSH 10 ml ASDIRECTED PRN Administration Keep Vein Open Sodium Chloride 2.5 ml 07/18/20 09:41 07/18/20 10:07 Saline Flush FLUSH 2.5 ml ASDIRECTED PRN Administration Keep Vein Open Discontinued Medications Generic Name Dose Route Start Last Admin Trade Name Freq PRN Reason Stop Dose Admin Dicyclomine HCl 20 mg 07/18/20 09:41 07/18/20 10:06 Bentyl PO 07/18/20 09:42 20 mg ONETIME ONE Administration Sodium Chloride 1,000 mls @ 999 mls/hr 07/18/20 09:41 07/18/20 10:06 Normal Saline IV 07/18/20 10:41 999 mls/hr .Bolus ONE Administration Ondansetron HCl 4 mg 07/18/20 09:41 07/18/20 10:07 Zofran IVPUSH 07/18/20 09:42 4 mg ONETIME ONE Administration Potassium Chloride 40 meq 07/18/20 11:28 07/18/20 11:42 Klor-Con M20 PO 07/18/20 11:29 Not Given ONETIME ONE Potassium Chloride 40 meq 07/18/20 11:43 07/18/20 11:47 Potassium Chloride Solution PO 07/18/20 11:44 40 meq ONETIME ONE Administration Potassium Chloride Confirm 07/18/20 11:45 Potassium Chloride Administered 07/18/20 11:46 Dose 40 meq .ROUTE .STK-MED ONE Departure - Departure Time of Disposition: 11:55 Disposition: Home, Self-Care 01 Condition: Good Clinical Impression: Abdominal pain, Diarrhea - Discharge Information *PRESCRIPTION DRUG MONITORING PROGRAM REVIEWED*: Not Applicable *COPY OF PRESCRIPTION DRUG MONITORING REPORT IN PATIENT FUNMI: Not Applicable Instructions: Abdominal Pain, Adult, [id number], Diarrhea, Adult Referrals: Fransico Blackmon MD [Primary Care Provider] - Forms: ED Department Discharge Additional Instructions: You have a follow up appointment with Dr. Blackmon on 07/25/2020 at 1030. Please arrive at least 15 minutes early for registration purposes. Sepsis Event Note (ED) - Evaluation Sepsis Screening Result: No Definite Risk - Focused Exam Vital Signs: Vital Signs Temp Pulse Resp BP Pulse Ox 07/18/20 09:35 37.0 C 77 20 174/104 H 98 - My Orders Last 24 Hours: My Active Orders 07/18/20 09:41 Sodium Chloride 0.9% [Saline Flush] 10 ml FLUSH ASDIRECTED PRN Sodium Chloride 0.9% [Saline Flush] 2.5 ml FLUSH ASDIRECTED PRN Saline Lock Insert [OM.PC] Stat 07/18/20 09:43 C DIFFICILE AG/TOXIN W/REFLEX [RM] Stat - Assessment/Plan Last 24 Hours: My Active Orders 07/18/20 09:41 Sodium Chloride 0.9% [Saline Flush] 10 ml FLUSH ASDIRECTED PRN Sodium Chloride 0.9% [Saline Flush] 2.5 ml FLUSH ASDIRECTED PRN Saline Lock Insert [OM.PC] Stat 07/18/20 09:43 C DIFFICILE AG/TOXIN W/REFLEX [RM] Stat
[2020-07-18 11:03] LABS: BLOOD UREA NITROGEN,BUN 6 mg/dL (7.0-18.0); CHLORIDE,CL 102 mmol/L (98-107); GLUCOSE RANDOM 103 mg/dL (74-106); LIPASE 52 U/L (73-393); POTASSIUM,K 3.2 mmol/L (3.5-5.1); SODIUM,NA 138 mmol/L (136-145)
[2020-07-18] MEDS: Potassium Chloride 20 MEQ Tab.ER PO ONE ×2 (11:40→11:42)
[2020-07-18] MEDS ORDERED: Potassium Chloride 10% 20 MEQ/15 ML Soln 15 ML UD Cup PO ONE (11:43)
[2020-07-18] MEDS ORDERED: Potassium Chloride 10% 20 MEQ/15 ML Soln 30 ML UD Cup ONE (11:45)
== END 2020-07-18 12:14 | disposition home or self-care (01) ==
LOC: MW.ED 09:19
DX: R10.84 Generalized abdominal pain (principal); R19.7 Diarrhea, unspecified; I10 Essential (primary) hypertension; J45.909 Unspecified asthma, uncomplicated; K21.9 Gastro-esophageal reflux disease without esophagitis; F41.9 Anxiety disorder, unspecified; F32.9 Major depressive disorder, single episode, unspecified; E03.9 Hypothyroidism, unspecified; F17.210 Nicotine dependence, cigarettes, uncomplicated; Z88.5 Allergy status to narcotic agent; Z88.6 Allergy status to analgesic agent; Z91.040 Latex allergy status; Z88.8 Allergy status to other drugs, medicaments and biological substances; Z88.2 Allergy status to sulfonamides; Z20.828 Contact with and (suspected) exposure to other viral communicable diseases; Z79.899 Other long term (current) drug therapy
CPT/HCPCS: 36415; 80053; 81001; 83690; 85025; 87324; 87635; 96361; 96374; 99284; A9270; J2405; J7030; 99283; U0002